=== PATIENT | female | born 1965 | race Caucasian/White ===

== ENCOUNTER → 2018-04-28 | Outpatient (REF) | payer OTHER, MEDICAID ==
[2018-04-28 13:17] LABS: HEMATOCRIT 43.9 % (36.0-47.0); HEMOGLOBIN 13.6 g/dl (12.0-15.5); MEAN CORPUSCULAR HEMOGLOBIN 27.4 pg (27.0-33.0); MEAN CORPUSCULAR VOLUME 88.5 fl (80.0-96.0); PLATELET COUNT, AUTOMATED 421 10^3/uL (150-450); RED BLOOD COUNT 4.96 10^6/uL (4.00-5.40); WHITE BLOOD COUNT 8.5 10^3/uL (4.0-10.0)
[2018-04-28 13:27] LABS: ALBUMIN 4.2 GM/DL (3.2-5.2); ALKALINE PHOSPHATASE 61 U/L (45-117); ALT/SGPT 20 U/L (12-78); ANION GAP 11 MEQ/L (8-16); AST/SGOT 10 U/L (7-37); BILIRUBIN,TOTAL 0.3 MG/DL (0.2-1.0); BLOOD UREA NITROGEN 12 MG/DL (7-18); CALCIUM LEVEL 9.2 MG/DL (8.5-10.1); CARBON DIOXIDE LEVEL 27 MEQ/L (21-32); CHLORIDE LEVEL 105 MEQ/L (98-107); CHOLESTEROL LEVEL 167 MG/DL (<200); CHOLESTEROL RISK RATIO 2.385 (<5); CREATININE FOR GFR 1.02 MG/DL (0.55-1.30); FERRITIN 14 NG/ML (8-252); FREE T4 1.06 NG/DL (0.76-1.46); GLOMERULAR FILTRATION RATE > 60.0 (>51); GLUCOSE, FASTING 81 MG/DL (70-100); HDL CHOLESTEROL 70 MG/DL (>40); IRON (FE) 58 UG/DL (50-170); LDL CHOLESTEROL 77 MG/DL (<100); NON-HDL-C 97 MG/DL; PERCENT SATURATION 13.9 % (13.2-45.0); POTASSIUM SERUM 4.4 MEQ/L (3.5-5.1); SODIUM LEVEL 143 MEQ/L (136-145); TOTAL IRON BINDING CAPACITY 418 UG/DL (250-450); TOTAL PROTEIN 7.7 GM/DL (6.4-8.2); TRIGLYCERIDES LEVEL 100 MG/DL (<150)
[2018-04-28 13:41] LABS: TOTAL 25(OH) VITAMIN D 26.5 NG/ML (30.0-100.0)
[2018-04-28 13:48] LABS: MALB URINE SIEMENS 19.7 MG/L
[2018-04-28 14:11] LABS: MAU/CREAT RATIO 17.9 MCG/MG (0.0-30.0)
== END ==
LOC: M SFHCPLAZ 08:28
DX: R53.83 Other fatigue (principal); E78.4 Other hyperlipidemia; Z98.84 Bariatric surgery status; I10 Essential (primary) hypertension; E55.9 Vitamin D deficiency, unspecified

== ENCOUNTER 2018-06-14 13:07 | Emergency (ER) | payer MEDICAID, OTHER ==
[2018-06-14] MEDS: GI COCKTAIL 50ML BTL(HYOSCYAMINE/MAALOX/LIDOCAINE VISCOUS)(1:3:1) PO (14:00)
[2018-06-14] MEDS: NS 500 ML IV (14:00)
[2018-06-14 14:14] LABS: BASO # 0.1 10^3/uL (0.0-0.2); BASO % 0.5 % (0.0-1.0); EOS # 0.2 10^3/uL (0.0-0.50); EOS % 1.9 % (0.0-3.0); HEMATOCRIT 44.4 % (36.0-47.0); HEMOGLOBIN 14.2 g/dl (12.0-15.5); IMMATURE GRANULOCYTE % 0.3 % (0-3.0); LYMPH # 3.4 10^3/uL (1.5-4.5); LYMPH % 36.4 % (24.0-44.0); MEAN CORPUSCULAR HEMOGLOBIN 27.4 pg (27.0-33.0); MEAN CORPUSCULAR VOLUME 85.7 fl (80.0-96.0); MONO # 0.7 10^3/uL (0.0-0.8); MONO % 7.3 % (0.0-5.0); NEUTROPHILS % 53.6 % (36.0-66.0); PLATELET COUNT, AUTOMATED 391 10^3/uL (150-450); RED BLOOD COUNT 5.18 10^6/uL (4.00-5.40); RED CELL DISTRIBUTION WIDTH 14.2 % (11.5-14.5); WHITE BLOOD COUNT 9.4 10^3/uL (4.0-10.0)
[2018-06-14 14:30] LABS: PROTHROMBIN TIME 13.3 SECONDS (12.1-14.4)
[2018-06-14 14:31] LABS: PARTIAL THROMBOPLASTIN TIME 32.3 SECONDS (25.4-37.6)
[2018-06-14 14:33] LABS: D-DIMER QUANT 286.7 ng/ml (<500)
[2018-06-14 14:43] LABS: ALBUMIN 3.9 GM/DL (3.2-5.2); ALBUMIN/GLOBULIN RATIO 1.08 (1.00-1.93); ALKALINE PHOSPHATASE 60 U/L (45-117); ALT/SGPT 22 U/L (12-78); ANION GAP 8 MEQ/L (8-16); AST/SGOT 13 U/L (7-37); BILIRUBIN,DIRECT 0.1 MG/DL (0.0-0.2); BILIRUBIN,TOTAL 0.4 MG/DL (0.2-1.0); BLOOD UREA NITROGEN 18 MG/DL (7-18); C REACTIVE PROTEIN QUANTITATIV 0.35 MG/DL (0.00-0.30); CARBON DIOXIDE LEVEL 27 MEQ/L (21-32); CHLORIDE LEVEL 106 MEQ/L (98-107); CPK CREATINE PHOSPHOKINASE 83 U/L (26-192); GLOMERULAR FILTRATION RATE 55.3 (>51); GLUCOSE, FASTING 88 MG/DL (70-100); LIPASE 112 U/L (73-393); MB/CK RELATIVE INDEX 1.57 (< OR =4); POTASSIUM SERUM 4.4 MEQ/L (3.5-5.1); SODIUM LEVEL 141 MEQ/L (136-145); TOTAL PROTEIN 7.5 GM/DL (6.4-8.2); TROPONIN I < 0.02 NG/ML (< 0.10)
== END 2018-06-14 15:22 | disposition home or self-care (01) ==
LOC: M ED 13:07
DX: R07.89 Other chest pain (principal); R06.02 Shortness of breath; I10 Essential (primary) hypertension; E78.5 Hyperlipidemia, unspecified; F32.9 Major depressive disorder, single episode, unspecified; F43.10 Post-traumatic stress disorder, unspecified; G47.33 Obstructive sleep apnea (adult) (pediatric); Z87.442 Personal history of urinary calculi; Z98.84 Bariatric surgery status; Z82.49 Family history of ischemic heart disease and other diseases of the circulatory system; Z88.1 Allergy status to other antibiotic agents; Z88.2 Allergy status to sulfonamides; Z79.899 Other long term (current) drug therapy; Z79.82 Long term (current) use of aspirin
CPT/HCPCS: 71046

== ENCOUNTER → 2018-06-17 | Outpatient (CLI) | payer MEDICAID | LOC: M WHC 11:19 | DX: Z12.31 Encounter for screening mammogram for malignant neoplasm of breast (principal); Z80.3 Family history of malignant neoplasm of breast | CPT/HCPCS: 77067 ==

== ENCOUNTER → 2019-01-13 | Outpatient (CLI) | payer OTHER ==
[~2019-01-13] MED LIST: AMLO10TA5 OR; ASPI81TA85 PO; CITA20TA6 OR; PRIL20TA2 PO; ROSU20TA4 OR; TRAZ-252 OR
--- NOTE | 2019-01-13 10:40 | REP ---
LEFT KNEE, FIVE VIEWS: HISTORY: Knee pain. There is no acute fracture or dislocation. There is minimal narrowing of the medial knee joint space. The lateral knee joint space and patellofemoral joint space are normal in appearance. Osteophytes are present on the femur and tibia. IMPRESSION: Degenerative change as described above. Electronically Signed by Roger Jimenez MD 01/13/2019 11:51 A
== END ==
LOC: M ADAMS 09:05
PROVIDERS: ATTEND Physician Assistant Medical
DX: M17.12 Unilateral primary osteoarthritis, left knee (principal)

== ENCOUNTER → 2019-02-03 | Outpatient (CLI) | payer OTHER ==
[~2019-02-03] MED LIST changes: -ROSU20TA4 OR; +ROSU20TA5 OR
--- NOTE | 2019-02-03 08:59 | REP ---
Clinical: Right foot pain Technique: AP, lateral, bilateral oblique views right foot . Findings: The osseous structures and joint spaces are intact and normal. There is no evidence for acute fracture or dislocation. Surrounding soft tissues are unremarkable. No subcutaneous emphysema or radiodense foreign body. Impression: Age-appropriate right foot radiographs. No obvious acute abnormality by radiographic evaluation. Electronically Signed by Jose Acosta MD 02/03/2019 08:51 A
== END ==
LOC: M ADAMS 08:27
PROVIDERS: ATTEND Physician Assistant Medical
DX: M79.671 Pain in right foot (principal)

== ENCOUNTER → 2019-07-06 | Outpatient (REF) | payer OTHER ==
[2019-07-06 12:23] LABS: HEMATOCRIT 44.5 % (36.0-47.0); HEMOGLOBIN 13.7 g/dl (12.0-15.5); MEAN CORPUSCULAR HEMOGLOBIN 27.7 pg (27.0-33.0); MEAN CORPUSCULAR HGB CONC 30.8 g/dl (32.0-36.5); MEAN CORPUSCULAR VOLUME 89.9 fl (80.0-96.0); PLATELET COUNT, AUTOMATED 440 10^3/uL (150-450); RED BLOOD COUNT 4.95 10^6/uL (4.00-5.40); WHITE BLOOD COUNT 9.5 10^3/uL (4.0-10.0)
[2019-07-06 12:31] LABS: ALBUMIN 3.9 GM/DL (3.2-5.2); BILIRUBIN,DIRECT 0.1 MG/DL (0.0-0.2); BILIRUBIN,TOTAL 0.3 MG/DL (0.2-1.0); CALCIUM LEVEL 9.3 MG/DL (8.5-10.1); CREATININE FOR GFR 1.04 MG/DL (0.55-1.30); GLOMERULAR FILTRATION RATE 58.8 (>51); PERCENT SATURATION 13.5 % (13.2-45.0); POTASSIUM SERUM 4.3 MEQ/L (3.5-5.1); THYROID STIMULATING HORMONE 2.35 uIU/ML (0.358-3.740); TOTAL PROTEIN 7.4 GM/DL (6.4-8.2)
[2019-07-06 12:33] LABS: TOTAL 25(OH) VITAMIN D 29.3 NG/ML (30.0-100.0)
== END ==
LOC: M SFHCPLAZ 09:26
PROVIDERS: ATTEND Family Medicine
DX: R53.82 Chronic fatigue, unspecified (principal); R19.7 Diarrhea, unspecified; I10 Essential (primary) hypertension; E55.9 Vitamin D deficiency, unspecified

== ENCOUNTER → 2019-08-04 | Outpatient (CLI) | payer OTHER ==
--- NOTE | 2019-08-04 09:24 | REPMRS ---
Patient History The patient states she has not had a clinical breast exam in over a year. Family history of breast cancer at age 45 in maternal grandmother. Took hormonal contraceptives for 10 years. Digital Woman Screen Mammo: August 04, 2019 - Exam #: [id number] Bilateral CC and MLO view(s) were taken. Technologist: Amanda Zee, Technologist Prior study comparison: June 17, 2018, bilateral digital woman screen mammo performed at [facility] [place]. October 2016, bilateral digital mammo screening bilat, performed at [facility]. March 04, 2015, bilateral digital mammo screening bilat, performed at [facility]. FINDINGS: There are scattered fibroglandular densities. There is a stable intramammary lymph node in the upper outer quadrant of the right breast unchanged from multiple prior studies. There has been no change in the appearance of the mammogram from the prior studies. There is a mild amount of scattered fibroglandular density which is fairly symmetric. There is no interval development of dominant mass, architectural distortion, or grouped microcalcification suggestive of malignancy. 3-D tomosynthesis shows no additional findings. Assessment: BI-RADS/ACR category 2 mammogram. Benign Findings. Recommendation Routine screening mammogram of both breasts in 1 year (for women over age 40). This patient's Lifetime Breast Cancer Risk is estimated at 9.4 %. This mammogram was interpreted with the aid of an FDA-approved computer-aided dectection system. Electronically Signed By: Balta Degroot MD 08/04/19 0923
== END ==
LOC: M WHC 08:17
PROVIDERS: ATTEND Family Medicine
DX: Z12.31 Encounter for screening mammogram for malignant neoplasm of breast (principal); Z92.0 Personal history of contraception

== ENCOUNTER → 2019-08-16 | Outpatient (REF) | payer OTHER | LOC: M LAB REF 10:21 | PROVIDERS: ATTEND Internal Medicine Gastroenterology | DX: K58.2 Mixed irritable bowel syndrome (principal) ==

== ENCOUNTER → 2019-08-23 | Outpatient (REF) | payer OTHER ==
[2019-08-23 10:49] LABS: CALCIUM LEVEL 9.3 MG/DL (8.5-10.1); CREATININE FOR GFR 1.1 MG/DL (0.55-1.30); GLOMERULAR FILTRATION RATE 55.1 (>51); POTASSIUM SERUM 4.3 MEQ/L (3.5-5.1)
== END ==
LOC: M SFHCPLAZ 09:08
PROVIDERS: ATTEND Family Medicine
DX: R10.9 Unspecified abdominal pain (principal)

== ENCOUNTER → 2019-08-23 | Outpatient (REF) | payer OTHER ==
[2019-08-23 13:42] LABS: APPEARANCE, URINE CLOUDY (CLEAR); BACTERIA, URINE AUTO NEGATIVE (NEGATIVE); BILIRUBIN, URINE AUTO NEGATIVE (NEGATIVE); BLOOD, URINE BLOOD NEGATIVE (NEGATIVE); COLOR, URINE YELLOW (YELLOW); GLUCOSE, URINE (UA) AUTO NEGATIVE (NEGATIVE); KETONE, URINE AUTO NEGATIVE (NEGATIVE); LEUKOCYTE ESTERASE, URINE AUTO TRACE (NEGATIVE); NITRITE, URINE AUTO NEGATIVE (NEGATIVE); PROTEIN, URINE AUTO NEGATIVE (NEGATIVE); RBC, URINE AUTO 1 /HPF (0-3); SPECIFIC GRAVITY URINE AUTO 1.021 (1.002-1.035); SQUAMOUS EPITHELIAL CELL UR AU 0 /HPF (0-6); UROBILINOGEN, URINE AUTO 0.2 mg/dL (0.0-2.0); WBC, URINE AUTO 1 /HPF (0-3)
== END ==
LOC: M SFHCPLAZ 13:15
PROVIDERS: ATTEND Family Medicine
DX: R10.9 Unspecified abdominal pain (principal)

== ENCOUNTER → 2019-08-23 | Outpatient (CLI) | payer OTHER ==
--- NOTE | 2019-08-23 11:27 | REP ---
CT of the abdomen and pelvis without IV and oral contrast for acute left flank pain, stat request: There are no comparisons. There are no renal or ureteral calculi on the right on the left. There are no bladder calculi. There is no hydronephrosis or perinephric stranding. There is a 2.6 cm right renal mid pole cyst. No left renal cysts are identified. The study is insensitive for renal masses in the absence of IV contrast. The visualized lung engel are unremarkable. The unenhanced hepatic parenchyma, gallbladder, pancreas, spleen and adrenals are unremarkable. The abdominal aorta is unremarkable. There is no periaortic adenopathy or mass. There is no bowel distension or obstruction. The mesentery is unremarkable. Pelvis: The appendix is unremarkable. There is no ascites or adenopathy. The pelvic bowel loops are unremarkable. There is a surgical staple line in the upper abdomen compatible with bariatric surgery. The visualized lung engel are unremarkable. Impression: There is no hydronephrosis. There are no renal, ureteral or bladder calculi. There is a right renal cyst as described. Bariatric surgery. Electronically Signed by Tu Zapata MD 08/23/2019 11:19 A
== END ==
LOC: M RAD 09:46
PROVIDERS: ATTEND Family Medicine
DX: N28.1 Cyst of kidney, acquired (principal); Z98.84 Bariatric surgery status; R10.9 Unspecified abdominal pain

== ENCOUNTER 2019-09-02 07:47 | Emergency (ER) | payer OTHER ==
[~2019-09-02] VITALS: Ht 152.4 cm; Wt 119.7 kg
[2019-09-02 07:48] VITALS: BP 142/70
[2019-09-02] MEDS ORDERED: ARIP1TAB6 PO (07:55)
[2019-09-02] MEDS ORDERED: ATOR40TA75 PO (07:55)
[2019-09-02] MEDS ORDERED: FLUO40CA PO (07:55)
--- NOTE | 2019-09-02 08:40 | REP ---
Right ankle four views : There is no fracture or dislocation. Mineralization and joint spaces are normal. There are no calcifications or foreign bodies. Impression: Negative right ankle . Electronically Signed by Tu Zapata MD 09/02/2019 08:31 A
== END 2019-09-02 09:19 | disposition home or self-care (01) ==
LOC: M ED 07:47
DX: S90.01XA Contusion of right ankle, initial encounter (principal); W22.8XXA Striking against or struck by other objects, initial encounter; Y92.89 Other specified places as the place of occurrence of the external cause; Y99.0 Civilian activity done for income or pay; I10 Essential (primary) hypertension; Z98.84 Bariatric surgery status; Z79.899 Other long term (current) drug therapy; Z88.2 Allergy status to sulfonamides; Z88.8 Allergy status to other drugs, medicaments and biological substances

== ENCOUNTER 2019-12-07 09:22 | Emergency (ER) | payer OTHER ==
[~2019-12-07] VITALS: Ht 152.4 cm; Wt 120.5 kg
[~2019-12-07 09:22] MED LIST changes: +ARIP1TAB6 PO; +ATOR40TA75 PO; +FLUO40CA PO; +MIRA3350 PO
[2019-12-07 10:36] LABS: BASO % 0.5 % (0.0-1.0); EOS # 0.2 10^3/uL (0.0-0.5); EOS % 2.6 % (0.0-3.0); HEMATOCRIT 39.3 % (36.0-47.0); HEMOGLOBIN 12.4 g/dl (12.0-15.5); LYMPH # 2.6 10^3/uL (1.5-5.0); LYMPH % 29.8 % (24.0-44.0); MEAN CORPUSCULAR HEMOGLOBIN 27.9 pg (27.0-33.0); MEAN CORPUSCULAR HGB CONC 31.6 g/dl (32.0-36.5); MEAN CORPUSCULAR VOLUME 88.3 fl (80.0-96.0); MONO # 0.8 10^3/uL (0.0-0.8); MONO % 9.4 % (0.0-5.0); NEUTROPHILS # 5.1 10^3/uL (1.5-8.5); NEUTROPHILS % 57.4 % (36.0-66.0); PLATELET COUNT, AUTOMATED 402 10^3/uL (150-450); RED BLOOD COUNT 4.45 10^6/uL (4.00-5.40); WHITE BLOOD COUNT 8.8 10^3/uL (4.0-10.0)
--- NOTE | 2019-12-07 10:38 | REP ---
All chest x-ray: Single view. History: Dyspnea and cough. Comparison chest x-ray: June 14, 2018. Findings: Monitoring electrodes are seen. Lungs are symmetrically aerated and clear. The pleural angles are sharp. Cardiomediastinal silhouette is unremarkable and unchanged. Pulmonary vasculature is not increased. No bony abnormality. Impression: No active disease. Electronically Signed by Eyad Degroot MD 12/07/2019 10:29 A
[2019-12-07 11:05] LABS: ALBUMIN 3.4 GM/DL (3.2-5.2); ALT/SGPT 28 U/L (12-78); BILIRUBIN,DIRECT < 0.1 MG/DL (0.0-0.2); BILIRUBIN,TOTAL 0.3 MG/DL (0.2-1.0); BLOOD UREA NITROGEN 18 MG/DL (7-18); CALCIUM LEVEL 8.9 MG/DL (8.5-10.1); CARBON DIOXIDE LEVEL 28 MEQ/L (21-32); CHLORIDE LEVEL 108 MEQ/L (98-107); CK-MB VALUE MASS < 1.0 NG/ML (<3.6); CPK CREATINE PHOSPHOKINASE 72 U/L (26-192); GLOMERULAR FILTRATION RATE 49.7 (>51); GLUCOSE, FASTING 97 MG/DL (70-100); MB/CK RELATIVE INDEX 1.39 (< OR =4); NT-PRO BNP 313 PG/ML (<125); POTASSIUM SERUM 4.4 MEQ/L (3.5-5.1); SODIUM LEVEL 142 MEQ/L (136-145); THYROXINE (T4) 8.5 UG/DL (4.5-12.0); TOTAL PROTEIN 6.9 GM/DL (6.4-8.2); TROPONIN I < 0.02 NG/ML (< 0.10)
[2019-12-07 11:45] VITALS: BP 135/82
--- NOTE | 2019-12-07 22:05 | ECGEPIP ---
[facility] - ED Test Date: 2019-12-07 Pat Name: ELVIS CORBIN Department: Room: - Gender: Female Clinical Sociologist: marcelino : 1965 Requested By: Marshall Duarte Order Number: [id number] Reading MD: Marshall Rubin Measurements Intervals [place] Rate: 61 P: 2 LA: 140 QRS: 2 QRSD: 95 T: 11 QT: 400 QTc: 405 Interpretive Statements SINUS RHYTHM NONSPECIFIC T WAVE ABNORMALITIES SIMILAR TO 06/14/18 Electronically Signed on 12-07-2019 22:05:23 EDT by Marshall Rubin
== END 2019-12-07 12:23 | disposition home or self-care (01) ==
LOC: M ED 09:22
DX: J06.9 Acute upper respiratory infection, unspecified (principal); R07.9 Chest pain, unspecified; R06.02 Shortness of breath; I10 Essential (primary) hypertension; E78.5 Hyperlipidemia, unspecified; F32.9 Major depressive disorder, single episode, unspecified; F41.9 Anxiety disorder, unspecified; F60.3 Borderline personality disorder; Z98.84 Bariatric surgery status; Z88.2 Allergy status to sulfonamides; Z91.048 Other nonmedicinal substance allergy status; Z79.899 Other long term (current) drug therapy; Z20.828 Contact with and (suspected) exposure to other viral communicable diseases
CPT/HCPCS: 71045; 80048; 80076; 82550; 82553; 83605; 83880; 84436; 84443; 84484; 85025; 85379; 87040; 87486; 87581; 87633; 87798; 93005; 93041; 94760; 99285; C9803; U0002

== ENCOUNTER → 2020-01-26 | Outpatient (CLI) | payer OTHER ==
[~2020-01-26] MED LIST changes: +DERM1TAB2 PO
== END ==
LOC: M LABSMTC 10:49
PROVIDERS: ATTEND Anesthesiology
DX: Z01.818 Encounter for other preprocedural examination (principal); Z11.59 Encounter for screening for other viral diseases

== ENCOUNTER 2020-01-29 06:43 | Day surgery (SDC) | payer OTHER ==
[~2020-01-29] VITALS: Ht 152.4 cm; Wt 115.2 kg
[~2020-01-29 06:43] MED LIST changes: +NS 1,000 ML IV ONE
[2020-01-29] MEDS ORDERED: SIMETHICONE 40MG/0.6ML DROPS 30ML As Ordered ONE (07:03)
[2020-01-29] MEDS ORDERED: propofoL 500 MG/50 ML VIAL As Ordered ONE (07:35)
[2020-01-29] MEDS ORDERED: LIDOCAINE 2% 100MG/5ML SDV (FOR ANES.) As Ordered ONE (07:35)
--- NOTE | 2020-01-29 07:56 | ROOR ---
Patient Name: Hannah Townsend Procedure Date: 01/29/2020 7:26 AM Date of : 1965 Age: 54 Room: [facility] Gender: Female Note Status: Finalized Procedure: Colonoscopy Indications: Change in bowel habits Providers: Kwabena GÓMEZ MD Referring MD: Fabienne Oneal MD Requesting Provider: Medicines: Monitored Anesthesia Care Complications: No immediate complications. Procedure: Pre-Anesthesia Assessment: - The heart rate, respiratory rate, oxygen saturations, blood pressure, adequacy of pulmonary ventilation, and response to care were monitored throughout the procedure. The Colonoscope was introduced through the anus and advanced to the cecum, identified by appendiceal orifice and ileocecal valve. The colonoscopy was performed without difficulty. The patient tolerated the procedure well. The quality of the bowel preparation was good. Findings: The perianal and digital rectal examinations were normal. Four sessile polyps were found in the sigmoid colon, splenic flexure and hepatic flexure. The polyps were diminutive in size. These polyps were removed with a cold snare. Resection and retrieval were complete. Mild sigmoid diverticulosis and small internal hemorrhoids. Biopsies for histology were taken with a cold forceps from the entire colon for evaluation of microscopic colitis. The exam was otherwise normal throughout the examined colon. Impression: - Four diminutive polyps in the sigmoid colon, at the splenic flexure and at the hepatic flexure, removed with a cold snare. Resected and retrieved. - Mild sigmoid diverticulosis and small internal hemorrhoids. - Biopsies were taken with a cold forceps from the entire colon for evaluation of microscopic colitis. - The exam was otherwise normal to the cecum. Recommendation: - Repeat colonoscopy in 3 years for surveillance. - Continue present medications. Kwabena Gómez MD Kwabena GÓMEZ MD 01/29/2020 7:56:36 AM Electronically signed by Kwabena GÓMEZ MD Number of Addenda: 0 Note Initiated On: 01/29/2020 7:26 AM Estimated Blood Loss: Estimated blood loss: none.
[2020-01-29 08:15] VITALS: BP 159/88
== END 2020-01-29 08:33 | disposition home or self-care (01) ==
LOC: M OPP 06:43
PROVIDERS: ATTEND Internal Medicine Gastroenterology
DX: D12.5 Benign neoplasm of sigmoid colon (principal); D12.3 Benign neoplasm of transverse colon; R19.4 Change in bowel habit; Z79.899 Other long term (current) drug therapy; Z88.2 Allergy status to sulfonamides; Z88.8 Allergy status to other drugs, medicaments and biological substances; Z91.048 Other nonmedicinal substance allergy status; Z98.84 Bariatric surgery status

== ENCOUNTER 2020-03-05 09:58 | Inpatient (IN) | payer OTHER ==
[~2020-03-05 09:58] MED LIST changes: -AMLO10TA5 OR; +AMLO1TAB25 OR; -ASPI81TA85 PO; +ASPI81TA86 PO; -NS 1,000 ML IV ONE
[2020-03-05] MEDS ORDERED: ACETAMINOPHEN TAB 650MG DOSE (2X325MG) ONE (15:21)
[2020-03-05] MEDS ORDERED: ACETAMINOPHEN TAB 650MG DOSE (2X325MG) As Ordered ONE (15:21)
[2020-03-05] MEDS ORDERED: traZODone 50 MG TAB ONE (23:46)
[2020-03-05] MEDS ORDERED: traZODone 50 MG TAB As Ordered ONE (23:46)
[2020-03-06] MEDS ORDERED: FOLIC ACID 1 MG TAB ONE (09:58)
[2020-03-06] MEDS ORDERED: THIAMINE 100 MG TAB ONE ×2 (09:58→22:41)
[2020-03-06] MEDS ORDERED: MULTIVITAMINS/MINERALS THERAP 1 TAB ONE (09:58)
[2020-03-06] MEDS ORDERED: MIRTAZAPINE 7.5MG PER 1/2 TABLET ONE (21:54)
[2020-03-06] MEDS ORDERED: ATORVASTATIN 20 MG TAB ONE (21:54)
[2020-03-06] MEDS ORDERED: amLODIPine 10 MG TAB ONE (22:41)
[2020-03-06] MEDS ORDERED: amLODIPine 10 MG TAB As Ordered ONE (22:41)
[2020-03-06] MEDS ORDERED: THIAMINE 100 MG TAB As Ordered ONE (22:41)
[2020-03-07] MEDS ORDERED: MULTIVITAMINS/MINERALS THERAP 1 TAB ONE (09:43)
[2020-03-07] MEDS ORDERED: THIAMINE 100 MG TAB ONE (09:43)
[2020-03-07] MEDS ORDERED: FOLIC ACID 1 MG TAB ONE (09:43)
[2020-04-25 12:10] LABS: BASO # 0.1 10^3/uL (0.0-0.2); BASO % 0.8 % (0.0-1.0); EOS # 0.2 10^3/uL (0.0-0.5); EOS % 3.1 % (0.0-3.0); HEMATOCRIT 41.8 % (36.0-47.0); LYMPH # 2.4 10^3/uL (1.5-5.0); LYMPH % 31.4 % (24.0-44.0); MEAN CORPUSCULAR HEMOGLOBIN 25.8 pg (27.0-33.0); MEAN CORPUSCULAR HGB CONC 31.1 g/dl (32.0-36.5); MEAN CORPUSCULAR VOLUME 83.1 fl (80.0-96.0); MONO # 0.6 10^3/uL (0.0-0.8); MONO % 7.6 % (0.0-5.0); NEUTROPHILS # 4.4 10^3/uL (1.5-8.5); NEUTROPHILS % 56.7 % (36.0-66.0); PLATELET COUNT, AUTOMATED 425 10^3/uL (150-450); RED BLOOD COUNT 5.03 10^6/uL (4.00-5.40); WHITE BLOOD COUNT 7.7 10^3/uL (4.0-10.0)
[2020-05-28 11:07] LABS: ACETAMINOPHEN LEVEL < 2.0 UG/ML (10.0-30.0); ALBUMIN 3.8 GM/DL (3.2-5.2); ALT/SGPT 24 U/L (12-78); AMPHETAMINES LEVEL URINE NEGATIVE (NEGATIVE); BARBITURATES URINE NEGATIVE (NEGATIVE); BENZODIAZEPINES URINE NEGATIVE (NEGATIVE); BILIRUBIN,DIRECT 0.1 MG/DL (0.0-0.2); BILIRUBIN,TOTAL 0.4 MG/DL (0.2-1.0); BLOOD UREA NITROGEN 13 MG/DL (7-18); CALCIUM LEVEL 9.5 MG/DL (8.5-10.1); CANNABINOIDS URINE NEGATIVE (NEGATIVE); CARBON DIOXIDE LEVEL 29 MEQ/L (21-32); CHLORIDE LEVEL 104 MEQ/L (98-107); COCAINE METABOLITE URINE NEGATIVE (NEGATIVE); CREATININE FOR GFR 1.24 MG/DL (0.55-1.30); ETHYL ALCOHOL (ETHANOL) < 0.003 % (0.000-0.010); FREE T4 1.15 NG/DL (0.76-1.46); GLOMERULAR FILTRATION RATE 47.8 (>51); GLUCOSE, FASTING 97 MG/DL (70-100); METHADONE URINE NEGATIVE (NEGATIVE); OPIATES URINE NEGATIVE (NEGATIVE); PHENCYCLIDINE URINE NEGATIVE (NEGATIVE); POTASSIUM SERUM 4.5 MEQ/L (3.5-5.1); SALICYLATE LEVEL < 1.7 MG/DL (5.0-30.0); SODIUM LEVEL 137 MEQ/L (136-145); TOTAL PROTEIN 7.5 GM/DL (6.4-8.2)
--- NOTE | 2020-05-30 20:50 | MHDSPDOC ---
[facility] Discharge Summary Discharge Summary DATE OF ADMISSION: Mar 05, 2020 at 17:05 DATE OF DISCHARGE: Mar 07, 2020 at 13:55 DISCHARGE DIAGNOSES: F43.12 Post-traumatic stress disorder, chronic CONSULTANTS INVOLVED:[ None (basic hospitalist screening)] REASON FOR ADMISSION & TREATMENT AND PROGRESS ON THE UNIT : The patient was admitted to the inpatient mental health unit where she had initially some suicidal thoughts. MEDICATIONS: Her medications were changed from her Prozac, Abilify, and Trazodone combo to Mirtazapine 7.5 mg nightly. She did well on this regimen and her condition improved with no suicidal thoughts or depression. DISCHARGE ASSESSMENT[improved] Legal status considerations: The patient at the time of discharge did not meet criteria for involuntary admission/extension due to having a [normal] mental status exam, [fair] insight into the situation, They are engaged in the discharge process, as well as being friendly and amenable in behavioral control and havent been engaging in any observed concerning behavior or ideation recently. They decline voluntary extension/admission at this time and must be discharged in good jay, as Im unable to make a case for holding the patient against their will. They may have historical risk factors of admissions and other interactions with psychiatry however, those are not modifiable from a clinical perspective. The patient will need to be discharged in good jay. MENTAL STATUS EXAMINATION ON DISCHARGE: [General: Well dressed with good hygiene Speech: Spontaneous and fluid Thought processes: Linear and logical Thought content: Future orientated Abstract reasoning, and computation: Intact Description of associations: Intact Description of abnormal or psychotic thoughts:Denies any suicidal or homicidal ideation. Denies any auditory or visual hallucinations. Does not appear to be responding to internal stimuli. Does not appear to be endorsing any bizarre or paranoid ideation. Judgment: fair Insight: fair Orientation: Alert and orientated 3 Recent and remote memory: Intact Attention span and concentration: Intact Fund of knowledge: Adequate Mood: "okay" Affect: Euthymic with a full range] PLAN/FOLLOWUP ARRANGEMENTS: Follow up appointments made (PCP and MH in 5 days of D/C date) and safety plan completed. Prescription for Mirtazapine 7.5 mg nightly given on paper. Safety Planning aspects completed prior to discharge [Medication supplies limited to 7 days with 4 refills to prevent accumulation to OD] [RN reviewed crisis hotline information and other aspects to empower patient to access care in interim before next appointment.] The amount of time spent in the coordination of care for this patient was approximately 30 minutes. Medications Scheduled Amlodipine Besylate (Amlodipine Besylate) 10 Mg Tab, 10 MG OR DAILY, (Reported) Atorvastatin Calcium (Atorvastatin Calcium) 40 Mg Tablet, 1 TAB PO QPM for 30 Days, #30 (Reported) Divalproex Sodium (Depakote ER) 500 Mg Tab.er.24h, 1 TAB PO QPM for 30 Days, #30 Tizanidine HCl (Tizanidine HCl) 2 Mg Tablet, PO PRN, (Reported) Trazodone HCl (Trazodone HCl) 50 Mg Tab, 50 MG OR DAILY, (Reported) Vitamin D3/Folic Acid (Dermacinrx Purefolix Tablet) 5,000 Unit Tablet, 1 TAB PO DAILY, (Reported) Vortioxetine Hydrobromide (Trintellix) 10 Mg Tablet, PO DAILY, (Reported) Allergies Coded Allergies: sulfamethoxazole (Verified Allergy, Intermediate, hives, 01/22/20) trimethoprim (Verified Allergy, Intermediate, hives, 01/22/20) TAPE (Verified Adverse Reaction, Mild, RASH, 01/22/20) REYMUNDO TYLER DO May 30, 2020 20:50
== END 2020-03-07 13:55 | disposition home or self-care (01) | DRG 755 ==
LOC: M ED 09:58 → M PSY 17:05
PROVIDERS: ADMIT Psychiatry & Neurology Addiction Medicine; ATTEND Psychiatry & Neurology Addiction Medicine
DX: F43.12 Post-traumatic stress disorder, chronic (principal); Z88.2 Allergy status to sulfonamides; Z79.899 Other long term (current) drug therapy; Z88.8 Allergy status to other drugs, medicaments and biological substances

== ENCOUNTER → 2020-03-13 | Outpatient (REF) | payer OTHER ==
[~2020-03-13] MED LIST changes: +BRIN10TA4 PO; +DEPA500T2 PO; +TIZA2TA PO
[2020-04-27 10:38] LABS: HEMOGLOBIN A1c 5.8 %
== END ==
LOC: M SFHCPLAZ 07:14
PROVIDERS: ATTEND Family Medicine
DX: Z13.1 Encounter for screening for diabetes mellitus (principal)

== ENCOUNTER → 2020-05-20 | Outpatient (CLI) | payer OTHER ==
--- NOTE | 2020-05-20 11:34 | REPVR ---
PROCEDURE INFORMATION: Exam: XR Chest, 2 Views Exam date and time: 05/20/2020 11:29 AM Age: 54 years old Clinical indication: Dyspnea; Additional info: Headache (xr1/ct2) TECHNIQUE: Imaging protocol: XR of the chest Views: 2 views. COMPARISON: ID PORTABLE CHEST X-RAY 12/07/2019 10:01 AM FINDINGS: Lungs: Unremarkable. No consolidation. Pleural space: Unremarkable. No pleural effusion. No pneumothorax. Heart/Mediastinum: Unremarkable. No cardiomegaly. Bones/joints: Unremarkable. IMPRESSION: No evidence for acute pulmonary disease. Electronically signed by: Rio Faith On 05/20/2020 11:34:33 AM
--- NOTE | 2020-05-20 11:46 | REPVR ---
PROCEDURE INFORMATION: Exam: CT Head Without Contrast Exam date and time: 05/20/2020 11:31 AM Age: 54 years old Clinical indication: Pain; Headache; Additional info: Headache (xr1/ct2) TECHNIQUE: Imaging protocol: Computed tomography of the head without contrast. Radiation optimization: All CT scans at this facility use at least one of these dose optimization techniques: automated exposure control; mA and/or kV adjustment per patient size (includes targeted exams where dose is matched to clinical indication); or iterative reconstruction. COMPARISON: No relevant prior studies available. FINDINGS: Brain: Normal. No hemorrhage. Unremarkable white matter. No mass effect. Cerebral ventricles: No ventriculomegaly. Bones/joints: Unremarkable. No acute fracture. Paranasal sinuses: Visualized sinuses are unremarkable. No fluid levels. Mastoid air cells: Visualized mastoid air cells are well aerated. Soft tissues: Unremarkable. IMPRESSION: No CT evidence for acute intracranial abnormality. Electronically signed by: Rio Faith On 05/20/2020 11:46:14 AM
[2020-05-20 11:47] LABS: BASO # 0.1 10^3/uL (0.0-0.2); BASO % 0.5 % (0.0-1.0); EOS # 0.2 10^3/uL (0.0-0.5); EOS % 1.8 % (0.0-3.0); HEMATOCRIT 40.9 % (36.0-47.0); HEMOGLOBIN 12.6 g/dl (12.0-15.5); LYMPH # 3.2 10^3/uL (1.5-5.0); LYMPH % 30.6 % (24.0-44.0); MEAN CORPUSCULAR HEMOGLOBIN 25.9 pg (27.0-33.0); MEAN CORPUSCULAR HGB CONC 30.8 g/dl (32.0-36.5); MONO # 0.8 10^3/uL (0.0-0.8); MONO % 7.7 % (0.0-5.0); NEUTROPHILS # 6.1 10^3/uL (1.5-8.5); NEUTROPHILS % 59.1 % (36.0-66.0); PLATELET COUNT, AUTOMATED 434 10^3/uL (150-450); RED BLOOD COUNT 4.87 10^6/uL (4.00-5.40); WHITE BLOOD COUNT 10.4 10^3/uL (4.0-10.0)
[2020-05-20 12:22] LABS: MONO REFLEX EBV COMP NEGATIVE (NEGATIVE)
[2020-05-20 12:28] LABS: ALBUMIN 3.6 GM/DL (3.2-5.2); ALT/SGPT 54 U/L (12-78); BILIRUBIN,TOTAL 0.3 MG/DL (0.2-1.0); BLOOD UREA NITROGEN 18 MG/DL (7-18); CALCIUM LEVEL 9.1 MG/DL (8.5-10.1); CARBON DIOXIDE LEVEL 27 MEQ/L (21-32); CHLORIDE LEVEL 107 MEQ/L (98-107); CPK CREATINE PHOSPHOKINASE 87 U/L (26-192); CREATININE FOR GFR 1.55 MG/DL (0.55-1.30); FREE T4 1.06 NG/DL (0.76-1.46); GLUCOSE, FASTING 84 MG/DL (70-100); POTASSIUM SERUM 4.4 MEQ/L (3.5-5.1); SODIUM LEVEL 140 MEQ/L (136-145)
[2020-05-20 12:51] LABS: ERYTHROCYTE SEDIMENTATION RATE 13 mm/hr (0-30)
[2020-05-20 12:52] LABS: APPEARANCE, URINE CLEAR (CLEAR); BACTERIA, URINE AUTO NEGATIVE (NEGATIVE); BILIRUBIN, URINE AUTO NEGATIVE (NEGATIVE); BLOOD, URINE BLOOD NEGATIVE (NEGATIVE); COLOR, URINE YELLOW (YELLOW); GLUCOSE, URINE (UA) AUTO NEGATIVE (NEGATIVE); KETONE, URINE AUTO NEGATIVE (NEGATIVE); LEUKOCYTE ESTERASE, URINE AUTO 1+ (NEGATIVE); MUCUS, URINE SMALL (NEGATIVE); NITRITE, URINE AUTO NEGATIVE (NEGATIVE); PROTEIN, URINE AUTO NEGATIVE (NEGATIVE); RBC, URINE AUTO 0 /HPF (0-3); SQUAMOUS EPITHELIAL CELL UR AU 1 /HPF (0-6); UROBILINOGEN, URINE AUTO 0.2 mg/dL (0.0-2.0); WBC, URINE AUTO 2 /HPF (0-3)
[2020-05-21 16:08] LABS: EBV AB TO NUCLEAR ANTIGEN <18.0 U/mL (0.0-17.9); EBV VIRAL CAPSID AG IgG >600.0 U/mL (0.0-17.9); EBV VIRAL CAPSID AG IgM <36.0 U/mL (0.0-35.9)
== END ==
LOC: M RAD 11:02
PROVIDERS: ATTEND Family Medicine
DX: R51.9 Headache, unspecified (principal); M79.10 Myalgia, unspecified site; R68.83 Chills (without fever)

== ENCOUNTER → 2020-05-22 | Outpatient (REF) | payer OTHER ==
[2020-05-22 15:28] LABS: CREATININE FOR GFR 1.18 MG/DL (0.55-1.30); GLOMERULAR FILTRATION RATE 50.6 (>51); POTASSIUM SERUM 4.3 MEQ/L (3.5-5.1)
== END ==
LOC: M PLALAB 12:44
PROVIDERS: ATTEND Family Medicine
DX: N17.9 Acute kidney failure, unspecified (principal)

== ENCOUNTER → 2020-05-22 | Outpatient (CLI) | payer OTHER ==
--- NOTE | 2020-05-22 09:45 | REP ---
INDICATION: N17.9 ACUTE KIDNEY INJURY COMPARISON: 07/24/2019 TECHNIQUE: Real time jacobs scale ultrasound examination using curved array transducer. Color Doppler evaluation of the intrarenal vasculature performed. FINDINGS: Bilateral kidneys are normal in reniform shape, contour, size, and echotexture without hydronephrosis, nephrolithiasis, renal mass lesion or perinephric fluid collection. No obvious renal injuries are identified. Right kidney measures 10.3 x 4.5 x 3.2 cm (RI equals 0.47) and includes 2.7 cm upper pole simple cyst and 0.8 cm midpole simple cyst. Left kidney measures 11.7 x 4.6 x 4.2 cm (RI equals 0.43) and includes 1.3 cm and 1.0 cm lower pole simple cysts. The bladder is incompletely distended and grossly unremarkable. IMPRESSION: 1. Kidneys demonstrate bilateral simple cysts without evidence for injury. <Electronically signed by Jose Acosta > 05/22/20 0941
== END ==
LOC: M WHC 07:57
PROVIDERS: ATTEND Family Medicine
DX: N28.1 Cyst of kidney, acquired (principal)

== ENCOUNTER → 2020-05-28 | Outpatient (REF) | payer OTHER ==
[2020-05-28 14:41] LABS: CALCIUM LEVEL 9.3 MG/DL (8.5-10.1); CREATININE FOR GFR 1.21 MG/DL (0.55-1.30); GLOMERULAR FILTRATION RATE 49.2 (>51); POTASSIUM SERUM 4.3 MEQ/L (3.5-5.1)
== END ==
LOC: M PLALAB 09:42
PROVIDERS: ATTEND Family Medicine
DX: N17.9 Acute kidney failure, unspecified (principal)

== ENCOUNTER 2020-05-30 09:37 | Emergency (ER) | payer OTHER ==
[~2020-05-30] VITALS: Ht 152.4 cm; Wt 115.9 kg
[~2020-05-30 09:37] MED LIST changes: -BRIN10TA4 PO; -DEPA500T2 PO; -TIZA2TA PO
[2020-05-30] MEDS ORDERED: TIZA2TA PO (10:02)
[2020-05-30] MEDS ORDERED: BRIN10TA4 PO (10:02)
[2020-05-30] MEDS ORDERED: NS 1,000 ML IV ONE (10:30)
[2020-05-30] MEDS ORDERED: KETOROLAC 30 MG/ML 1ML VIAL IV ONE (10:30)
[2020-05-30] MEDS ORDERED: METOCLOPRAMIDE INJ 10MG/2ML VIAL (J2765 PER 1) IV ONE (10:30)
[2020-05-30] MEDS ORDERED: MAG SULF 1GM/100ML (MAG RUN) 1 GM in IV 1 EA IV ONE (11:45)
[2020-05-30] MEDS ORDERED: VALPROATE SOD INJ 1,000 MG in D5W 50 ML IV ONE (11:45)
[2020-05-30] MEDS ORDERED: DEPA500T2 PO (12:30)
[2020-05-30 13:43] VITALS: BP 130/67
== END 2020-05-30 14:59 | disposition home or self-care (01) ==
LOC: M ED 09:37
DX: R51.9 Headache, unspecified (principal); I10 Essential (primary) hypertension; G47.33 Obstructive sleep apnea (adult) (pediatric); F33.9 Major depressive disorder, recurrent, unspecified; F43.10 Post-traumatic stress disorder, unspecified; Z79.899 Other long term (current) drug therapy
CPT/HCPCS: 96365; 96367; 96375; 99284; J1885; J2765; J3475

== ENCOUNTER 2020-06-03 09:48 | Emergency (ER) | payer OTHER ==
[~2020-06-03] VITALS: Ht 152.4 cm; Wt 116.0 kg
[~2020-06-03 09:48] MED LIST changes: +BRIN10TA4 PO; +DEPA500T2 PO; +TIZA2TA PO
[2020-06-03] MEDS ORDERED: METOCLOPRAMIDE INJ 10MG/2ML VIAL (J2765 PER 1) IV ONE (11:15)
[2020-06-03] MEDS ORDERED: ACETAMINOPHEN 500 MG TAB PO ONE (11:15)
[2020-06-03] MEDS ORDERED: KETOROLAC 30 MG/ML 1ML VIAL IV ONE (11:15)
--- NOTE | 2020-06-03 11:42 | REP ---
INDICATION: CHEST PAIN. COMPARISON: 05/20/2020 TECHNIQUE: AP seated portable chest FINDINGS: Lung engel are adequately inflated and without infiltrate, effusion, atelectasis or mass the heart is not enlarged for portable AP technique the airway and aorta were normal for this projection. No free air under the diaphragm. Bones are grossly unremarkable. IMPRESSION: 1. No acute cardiopulmonary change. Stable examination. <Electronically signed by Triston Rangel > 06/03/20 [id number]
[2020-06-03 12:21] LABS: BASO % 0.4 % (0.0-1.0); EOS # 0.2 10^3/uL (0.0-0.5); EOS % 2.1 % (0.0-3.0); HEMATOCRIT 40.6 % (36.0-47.0); HEMOGLOBIN 12.5 g/dl (12.0-15.5); LYMPH # 3.2 10^3/uL (1.5-5.0); LYMPH % 29.2 % (24.0-44.0); MEAN CORPUSCULAR HEMOGLOBIN 25.9 pg (27.0-33.0); MEAN CORPUSCULAR HGB CONC 30.8 g/dl (32.0-36.5); MEAN CORPUSCULAR VOLUME 84.2 fl (80.0-96.0); MONO # 0.9 10^3/uL (0.0-0.8); MONO % 8.3 % (0.0-5.0); NEUTROPHILS # 6.5 10^3/uL (1.5-8.5); NEUTROPHILS % 59.5 % (36.0-66.0); PLATELET COUNT, AUTOMATED 438 10^3/uL (150-450); RED BLOOD COUNT 4.82 10^6/uL (4.00-5.40); WHITE BLOOD COUNT 10.9 10^3/uL (4.0-10.0)
[2020-06-03] MEDS ORDERED: ISOVUE-370 76% 100ML VIAL As Ordered ONE (12:28)
[2020-06-03 12:39] LABS: INR 0.98; PROTHROMBIN TIME 13.2 SECONDS (12.5-14.3)
[2020-06-03 12:40] LABS: PARTIAL THROMBOPLASTIN TIME 34.3 SECONDS (24.2-38.5)
[2020-06-03 12:51] LABS: ALBUMIN 3.9 GM/DL (3.2-5.2); BILIRUBIN,DIRECT 0.1 MG/DL (0.0-0.2); BILIRUBIN,TOTAL 0.4 MG/DL (0.2-1.0); FREE T4 1.1 NG/DL (0.76-1.46); THYROID STIMULATING HORMONE 1.85 uIU/ML (0.358-3.740); TOTAL PROTEIN 7.4 GM/DL (6.4-8.2)
--- NOTE | 2020-06-03 13:22 | REP ---
INDICATION: constant garcia x 4 wks. COMPARISON: Comparison CT study brain 20 May 2020.. TECHNIQUE: Axial and sagittal imaging planes are utilized for T1 and T2-weighted scans. Sequences include spin-echo, fast spin echo, FLAIR, and diffusion weighted sequences. FINDINGS: No bony calvarial lesion is seen. Craniocervical junction and upper cervical cord are normal in appearance. There is no MR evidence of significant paranasal sinus disease. No intraorbital abnormality is seen. The lateral, third, and fourth ventricles are normal in size and position. Rodriguez-white differentiation pattern is intact above and below the tentorium. There is no evidence of intracranial hemorrhage. No mass, infarction, extra-axial fluid collection or midline shift is seen. No abnormal white matter lesion is seen. There are prominent perivascular spaces in the inferior aspect of the basal ganglia. This is a normal variant. IMPRESSION: Negative noncontrast brain MRI study. <Electronically signed by Balta Degroot > 06/03/20 2420
--- NOTE | 2020-06-03 13:24 | REP ---
INDICATION: constant garcia x 4 wks. COMPARISON: None. TECHNIQUE: 3-D [id number] MR angiography of the brain is acquired in the usual fashion and maximal intensity projection images were generated in rotational format about the vertical and horizontal axes. In addition, source axial T1-weighted images are viewed in cine mode. FINDINGS: The distal vertebral arteries are patent and co-dominant. Basilar artery is a little tortuous but widely patent. The posterior cerebral and superior cerebellar vessels are normal and symmetric. The left posterior communicator is larger than the right. The distal internal carotid arteries are unremarkable. Anterior and middle cerebral arteries appear intact. There is no visible winter aneurysm or arteriovenous malformation. IMPRESSION: Unremarkable MR angiography the brain. <Electronically signed by Balta Degroot > 06/03/20 [id number]
--- NOTE | 2020-06-03 14:59 | REP ---
INDICATION: R/O PE. COMPARISON: None. TECHNIQUE: CT angiogram chest performed following the intravenous administration of 100 cc of Isovue 370. Sagittal and coronal reconstruction images are performed. FINDINGS: Lungs: Mild scattered diffuse hazy ground-glass opacities are seen in the lungs representing poor ventilation or mild pneumonitis. Mediastinum: No adenopathy. Pulmonary arteries: No evidence of pulmonary embolism. Codi: No adenopathy. Axilla: No adenopathy. Pleura: No effusion. Heart: Mildly enlarged. Thoracic aorta: No aneurysm or dissection. Upper abdominal structures: Prior gastric surgery. Visualized osseous structures: Mild degenerative changes of the spine without compression deformity. A nodule is partially visualized in the lower pole of the left thyroid with a diameter of at least 1.8 cm. Recommend follow-up thyroid ultrasound. IMPRESSION: No CT evidence of pulmonary mild scattered diffuse ground-glass opacities in both lungs may represent poor ventilation or mild pneumonitis. Heart is mildly enlarged. A nodule is partially visualized in the lower pole of the left thyroid. Recommend follow-up thyroid ultrasound. <Electronically signed by Tu Rodriguez > 06/03/20 [id number]
[2020-06-03 15:57] VITALS: BP 122/81
--- NOTE | 2020-06-03 19:42 | ECGEPIP ---
[facility] - ED Test Date: 2020-06-03 Pat Name: ELVIS CORBIN Department: Room: - Gender: Female Registered Nursing Professor: lakeisha : 1965 Requested By: Mik Goodman Order Number: [id number] Reading MD: Yolanda Nice Measurements Intervals [place] Rate: 50 P: 1 ID: 144 QRS: -5 QRSD: 95 T: 0 QT: 442 QTc: 406 Interpretive Statements SINUS BRADYCARDIA NSTTW abnormalities DECREASED RATE 12/07/19 Electronically Signed on 06-03-2020 19:42:08 EST by Yolanda Nice
--- NOTE | 2020-06-04 06:41 | ED PDOC ---
Post-Departure Follow-Up cta chest faxed to dr gan for fu Mik Chung MD Jun 04, 2020 06:41
[2020-06-04 14:08] LABS: Lyme Disease IgG/IgM Antibodie <0.91 ISR (0.00-0.90); Lyme Disease IgM Ab Quantitati <0.80 index (0.00-0.79)
== END 2020-06-03 16:00 | disposition home or self-care (01) ==
LOC: M ED 09:48
DX: R09.1 Pleurisy (principal); R51.9 Headache, unspecified; R00.1 Bradycardia, unspecified; E04.1 Nontoxic single thyroid nodule; Z88.2 Allergy status to sulfonamides; Z88.8 Allergy status to other drugs, medicaments and biological substances; Z91.048 Other nonmedicinal substance allergy status; Z79.899 Other long term (current) drug therapy
CPT/HCPCS: 70544; 70551; 71045; 71275; 80047; 80076; 83690; 83880; 84439; 84443; 84484; 85025; 85610; 85730; 86617; 93005; 93041; 94760; 96374; 96375; 99284; J1885; J2765; Q9967

== ENCOUNTER 2020-06-06 11:59 | Emergency (ER) | payer OTHER ==
--- NOTE | 2020-06-06 12:31 | REP ---
INDICATION: DYSPNEA/COUGH. COMPARISON: June 03, 2020.. TECHNIQUE: Sitting AP portable view. FINDINGS: Monitoring electrodes are seen. The lungs are well inflated and clear. The pleural angles are sharp. Cardiomediastinal silhouette and bony thorax are unremarkable. Pulmonary vasculature is not increased. IMPRESSION: Negative portable chest x-ray. <Electronically signed by Balta Degroot > 06/06/20 [id number]
[2020-06-06 12:55] LABS: BASO # 0.1 10^3/uL (0.0-0.2); BASO % 0.5 % (0.0-1.0); EOS # 0.2 10^3/uL (0.0-0.5); EOS % 2.6 % (0.0-3.0); HEMATOCRIT 40.1 % (36.0-47.0); HEMOGLOBIN 12.2 g/dl (12.0-15.5); LYMPH % 31.8 % (24.0-44.0); MEAN CORPUSCULAR HEMOGLOBIN 25.7 pg (27.0-33.0); MEAN CORPUSCULAR HGB CONC 30.4 g/dl (32.0-36.5); MEAN CORPUSCULAR VOLUME 84.4 fl (80.0-96.0); MONO # 0.7 10^3/uL (0.0-0.8); MONO % 7.7 % (0.0-5.0); NEUTROPHILS # 5.3 10^3/uL (1.5-8.5); NEUTROPHILS % 57.1 % (36.0-66.0); PLATELET COUNT, AUTOMATED 432 10^3/uL (150-450); RED BLOOD COUNT 4.75 10^6/uL (4.00-5.40); WHITE BLOOD COUNT 9.3 10^3/uL (4.0-10.0)
[2020-06-06] MEDS ORDERED: NS 1,000 ML IV SCH (13:05)
[2020-06-06 13:12] LABS: ABG BASE EXCESS 0.4 (-2.0-2.0); ABG HCO3 24.6 MEQ/L (22.0-26.0); ABG O2 SATURATION 97.3 % (95.0-99.0); ABG PARTIAL PRESSURE CO2 38.1 mmHg (35.0-45.0); ABG PARTIAL PRESSURE O2 91.7 mmHg (75.0-100.0); ABG STANDARD HCO3 24.8 MEQ/L (22.0-26.0); ABG TOTAL CO2 25.7 MEQ/L (22.0-29.0); ABG pH (ARTERIAL) 7.427 UNITS (7.350-7.450)
[2020-06-06] MEDS ORDERED: METOCLOPRAMIDE INJ 10MG/2ML VIAL (J2765 PER 1) IV ONE (13:15)
[2020-06-06 13:25] LABS: ALBUMIN 3.7 GM/DL (3.2-5.2); ALT/SGPT 23 U/L (12-78); BILIRUBIN,DIRECT < 0.1 MG/DL (0.0-0.2); BILIRUBIN,TOTAL 0.3 MG/DL (0.2-1.0); NT-PRO BNP 161 PG/ML (<125); TOTAL PROTEIN 7.3 GM/DL (6.4-8.2)
[2020-06-06 13:43] LABS: BLOOD UREA NITROGEN 16 MG/DL (7-18); CALCIUM LEVEL 9.1 MG/DL (8.5-10.1); CARBON DIOXIDE LEVEL 28 MEQ/L (21-32); CHLORIDE LEVEL 106 MEQ/L (98-107); CK-MB VALUE MASS 1.1 NG/ML (<3.6); CPK CREATINE PHOSPHOKINASE 92 U/L (26-192); CREATININE FOR GFR 1.11 MG/DL (0.55-1.30); GLOMERULAR FILTRATION RATE 54.3 (>51); GLUCOSE, FASTING 80 MG/DL (70-100); POTASSIUM SERUM 4.8 MEQ/L (3.5-5.1); SODIUM LEVEL 138 MEQ/L (136-145); TROPONIN I < 0.02 NG/ML (< 0.10); VALPROIC ACID (DEPAKOTE) 47.8 UG/ML (50.0-100.0)
--- NOTE | 2020-06-06 14:54 | REP ---
INDICATION: headache. COMPARISON: Comparison CT study May 20, 2020.. TECHNIQUE: Helical scanning is acquired. 5 mm axial images were reformatted. Coronal MPR images were generated. FINDINGS: Bone window settings demonstrate an intact bony calvarium. There is no evidence of skull fracture or incidental bony calvarial lesion. The visualized paranasal sinuses appear clear. No intraorbital abnormality is seen. On soft tissue window setting images; the lateral, third, and fourth ventricles are normal in size and position. Rodriguez-white differentiation pattern is normal above and below the tentorium. There are is no evidence of intracranial hemorrhage. No mass, edema, infarction, or midline shift is seen. No extra-axial fluid collection is appreciated. There is mild vascular calcification in the distal internal carotid arteries. IMPRESSION: Vascular calcification. Otherwise negative noncontrast brain CT. No acute intracranial abnormality.. <Electronically signed by Balta Degroot > 06/06/20 [id number]
--- NOTE | 2020-06-06 14:59 | REP ---
INDICATION: SOB. COMPARISON: Comparison CT pulmonary angiogram 03 June 2020.. TECHNIQUE: Helical scanning is acquired. 3 mm axial images re-formatted. Coronal and sagittal multiplanar reformations images and coronal maximum intensity projection images are generated. FINDINGS: Preliminary digital principal systems architect radiograph is unremarkable. Lung engel are free of infiltrate. No atelectasis, mass, or significant nodule is seen. There is no evidence of pleural or pericardial effusion. There is mild vascular calcification again noted. Patient is status post gastric bypass. Normal adrenal glands are seen. There is a cyst in the right kidney partially included in the field of view measuring 2.8 cm in greatest diameter. Visualized upper abdominal structures are otherwise unremarkable. There is a left thyroid nodule or cyst measuring 2.1 cm in greatest diameter. No bony destructive lesion is appreciated. No endobronchial lesion is seen. The ground-glass opacity pattern seen on the June 03, [address] study is not seen today. IMPRESSION: No active cardiopulmonary disease. No infiltrate seen. Post gastric bypass. Right renal cyst and 2 cm left thyroid nodule noted. <Electronically signed by Balta Degroot > 06/06/20 [id number]
[2020-06-06 16:01] VITALS: BP 160/78
--- NOTE | 2020-06-07 09:15 | ECGEPIP ---
[facility] - ED Test Date: 2020-06-06 Pat Name: ELVIS CORBIN Department: Room: - Gender: Female Residential Real Estate Assistant: GABE : 1965 Requested By: Yolanda Nice Order Number: [id number] Reading MD: Yolanda Nice Measurements Intervals [place] Rate: 56 P: 27 RI: 150 QRS: -3 QRSD: 92 T: 24 QT: 439 QTc: 424 Interpretive Statements SINUS BRADYCARDIA SIMILAR 06/03/20 Electronically Signed on 06-07-2020 9:14:58 EST by Yolanda Nice
== END 2020-06-06 16:07 | disposition home or self-care (01) ==
LOC: M ED 11:59 → EDBD 11:59 → M ED 16:07
DX: R51.9 Headache, unspecified (principal); R06.00 Dyspnea, unspecified; I10 Essential (primary) hypertension; E78.5 Hyperlipidemia, unspecified; F33.9 Major depressive disorder, recurrent, unspecified; F43.10 Post-traumatic stress disorder, unspecified; F60.3 Borderline personality disorder; G47.33 Obstructive sleep apnea (adult) (pediatric); Z98.84 Bariatric surgery status; Z79.899 Other long term (current) drug therapy; Z88.1 Allergy status to other antibiotic agents; Z88.2 Allergy status to sulfonamides; Z88.8 Allergy status to other drugs, medicaments and biological substances; Z91.048 Other nonmedicinal substance allergy status
CPT/HCPCS: 36600; 70450; 71045; 71250; 80048; 80076; 80164; 82550; 82553; 82803; 83880; 84443; 84484; 85025; 87486; 87581; 87633; 87798; 93005; 93041; 96374; 99285; J2765

== ENCOUNTER → 2020-06-21 | Outpatient (CLI) | payer OTHER ==
--- NOTE | 2020-06-21 18:43 | REP ---
INDICATION: E04.1 THYROID NODULE COMPARISON: None. TECHNIQUE: Rodriguez scale and color evaluation of the thyroid gland using the linear high frequency transducer. FINDINGS: Right thyroid lobe measures 4.0 x 2.1 x 1.7 cm with 8 x 8 x 5 mm complex hypoechoic midpole nodule, 7 x 5 x 7 mm complex posterior lower pole nodule and 6 x 5 x 5 mm posterior lower pole nodule. Left lobe measures 4.3 x 1.9 x 2.2 cm and includes 4 x 3 x 2 mm upper pole nodule, 16 x 18 x 13 mm midpole nodule, and 7 x 7 x 7 mm medial midpole nodule. Isthmus measures 4 mm in width and includes 4 x 3 x 2 mm nodule. IMPRESSION: Bilateral thyroid nodules. The 7 x 5 x 7 mm right posterior lower pole nodule should be categorized as TI-RADS 3 and mildly suspicious and the 16 x 18 x 13 mm hypoechoic solid nodule in the left lobe should be categorized as TI-RADS 4 and moderately suspicious. FNA and/or follow-up should be considered. <Electronically signed by Jose Acosta > 06/21/20 [id number]
== END ==
LOC: M WHC 13:21
PROVIDERS: ATTEND Family Medicine
DX: E04.1 Nontoxic single thyroid nodule (principal)

== ENCOUNTER → 2020-07-04 | Outpatient (REF) | payer OTHER | LOC: M LAB REF 17:07 | PROVIDERS: ATTEND Internal Medicine Endocrinology, Diabetes & Metabolism | DX: E04.2 Nontoxic multinodular goiter (principal) ==

== ENCOUNTER → 2020-10-10 | Outpatient (REF) | payer OTHER ==
[2020-10-10 13:15] LABS: DRVV SCREEN 41.3 SEC
[2020-10-11 16:07] LABS: ANTINUCLEAR ANTIBODIES DIRECT Negative (Negative); Lyme Disease IgG/IgM Antibodie <0.91 ISR (0.00-0.90); Lyme Disease IgM Ab Quantitati <0.80 index (0.00-0.79)
== END ==
LOC: M LABDRWAD 12:20
PROVIDERS: ATTEND Physician Assistant Medical
DX: R51.9 Headache, unspecified (principal); M54.2 Cervicalgia

== ENCOUNTER → 2020-11-06 | Outpatient (REF) | payer BC ==
[2020-11-06 10:04] LABS: BASO # 0.1 10^3/uL (0.0-0.2); BASO % 0.8 % (0.0-1.0); EOS # 0.3 10^3/uL (0.0-0.5); EOS % 4.1 % (0.0-3.0); HEMATOCRIT 40.6 % (36.0-47.0); HEMOGLOBIN 12.5 g/dl (12.0-15.5); LYMPH # 2.9 10^3/uL (1.5-5.0); LYMPH % 39.2 % (24.0-44.0); MEAN CORPUSCULAR HEMOGLOBIN 26.6 pg (27.0-33.0); MEAN CORPUSCULAR HGB CONC 30.8 g/dl (32.0-36.5); MEAN CORPUSCULAR VOLUME 86.4 fl (80.0-96.0); MONO # 0.8 10^3/uL (0.0-0.8); MONO % 10.2 % (2.0-8.0); NEUTROPHILS # 3.3 10^3/uL (1.5-8.5); NEUTROPHILS % 45.2 % (36.0-66.0); PLATELET COUNT, AUTOMATED 470 10^3/uL (150-450); WHITE BLOOD COUNT 7.3 10^3/uL (4.0-10.0)
[2020-11-06 10:06] LABS: HEMATOCRIT 40.6 % (36.0-47.0)
[2020-11-06 10:47] LABS: BLOOD UREA NITROGEN 17 MG/DL (7-18); CALCIUM LEVEL 9.4 MG/DL (8.5-10.1); CARBON DIOXIDE LEVEL 31 MEQ/L (21-32); CHLORIDE LEVEL 107 MEQ/L (98-107); CHOLESTEROL LEVEL 228 MG/DL (<200); CHOLESTEROL RISK RATIO 3.257 (<5); CREATININE FOR GFR 0.93 MG/DL (0.55-1.30); FERRITIN 12 NG/ML (8-252); GLOMERULAR FILTRATION RATE > 60.0 (>51); GLUCOSE, FASTING 106 MG/DL (70-100); HDL CHOLESTEROL 70 MG/DL (>40); IRON (FE) 41 UG/DL (50-170); LDL CHOLESTEROL 139 MG/DL (<100); MAGNESIUM LEVEL 2.4 MG/DL (1.8-2.4); NON-HDL-C 158 MG/DL; PERCENT SATURATION 9.8 % (13.2-45.0); PHOSPHORUS LEVEL 3.6 MG/DL (2.5-4.9); POTASSIUM SERUM 4.3 MEQ/L (3.5-5.1); SODIUM LEVEL 140 MEQ/L (136-145); TOTAL IRON BINDING CAPACITY 417 UG/DL (250-450); TRIGLYCERIDES LEVEL 95 MG/DL (<150)
[2020-11-06 12:05] LABS: TOTAL 25(OH) VITAMIN D 30.6 NG/ML (30.0-100.0); VITAMIN B12 LEVEL 369 PG/ML (247-911)
== END ==
LOC: M SFHCPLAZ 08:36
PROVIDERS: ATTEND Family Medicine
DX: K90.9 Intestinal malabsorption, unspecified (principal); E78.2 Mixed hyperlipidemia; I10 Essential (primary) hypertension; E55.9 Vitamin D deficiency, unspecified

== ENCOUNTER 2020-11-20 09:08 | Emergency (ER) | payer BC, OTHER ==
[~2020-11-20] VITALS: Ht 152.4 cm; Wt 123.6 kg
[2020-11-20] MEDS ORDERED: NAPR220C14 PO (09:20)
--- NOTE | 2020-11-20 09:50 | REP ---
INDICATION: flank pain h/o stones COMPARISON: 08/23/2019 TECHNIQUE: Axial noncontrast images from the lung bases to the pubic symphysis with coronal and sagittal reformations. This CT examination was performed using the following dose reduction techniques: Automated exposure control, adjustment of mA and/or kv according to the patient's size, and use of iterative reconstruction technique. FINDINGS: Lung bases are clear. Visualized heart and pericardium normal. Liver, spleen, pancreas, gallbladder, and bilateral adrenal glands are normal. The kidneys demonstrate stable hypodensities likely representing benign cysts measuring up to 2.3 cm right kidney and 1.0 cm left kidney. No perinephric stranding, nephroureterolithiasis or hydroureteronephrosis. The enteric system demonstrates prior gastric bypass surgery. No bowel obstruction or acute inflammatory process. Normal terminal ileum and appendix identified in the right lower quadrant. Few scattered sigmoid diverticula noted without acute diverticulitis. Pelvis demonstrates normal bladder and evidence for prior hysterectomy. No ascites. No free air. No adenopathy. No focal inflammatory stranding. Abdominal aorta without aneurysm. Musculoskeletal structures are intact and without acute osseous abnormality. IMPRESSION: No acute abdominopelvic pathology appreciated. Kidneys demonstrate stable hypodensities consistent with cysts. Prior gastric bypass surgery and hysterectomy. No ascites, focal inflammatory stranding, free air or adenopathy. <Electronically signed by Jose Acosta > 11/20/20 0911
[2020-11-20 09:53] LABS: BASO # 0.1 10^3/uL (0.0-0.2); BASO % 0.7 % (0.0-1.0); EOS # 0.4 10^3/uL (0.0-0.5); EOS % 3.5 % (0.0-3.0); HEMOGLOBIN 12.7 g/dl (12.0-15.5); LYMPH # 3.2 10^3/uL (1.5-5.0); LYMPH % 32.1 % (24.0-44.0); MEAN CORPUSCULAR HEMOGLOBIN 26.3 pg (27.0-33.0); MEAN CORPUSCULAR VOLUME 85.1 fl (80.0-96.0); MONO # 0.9 10^3/uL (0.0-0.8); MONO % 8.5 % (2.0-8.0); NEUTROPHILS # 5.5 10^3/uL (1.5-8.5); NEUTROPHILS % 54.8 % (36.0-66.0); PLATELET COUNT, AUTOMATED 476 10^3/uL (150-450); RED BLOOD COUNT 4.82 10^6/uL (4.00-5.40)
[2020-11-20 10:21] LABS: ALBUMIN 3.8 GM/DL (3.2-5.2); ALT/SGPT 29 U/L (12-78); BILIRUBIN,DIRECT 0.1 MG/DL (0.0-0.2); BILIRUBIN,TOTAL 0.3 MG/DL (0.2-1.0); BLOOD UREA NITROGEN 22 MG/DL (7-18); CALCIUM LEVEL 9.1 MG/DL (8.5-10.1); CARBON DIOXIDE LEVEL 33 MEQ/L (21-32); CHLORIDE LEVEL 103 MEQ/L (98-107); CREATININE FOR GFR 1.01 MG/DL (0.55-1.30); GLOMERULAR FILTRATION RATE > 60.0 (>51); GLUCOSE, FASTING 89 MG/DL (70-100); LIPASE 87 U/L (73-393); POTASSIUM SERUM 3.7 MEQ/L (3.5-5.1); SODIUM LEVEL 140 MEQ/L (136-145); TOTAL PROTEIN 7.6 GM/DL (6.4-8.2)
[2020-11-20] MEDS ORDERED: DICYCLOMINE 10 MG CAP PO ONE (11:35)
[2020-11-20] MEDS ORDERED: MIRA3350 PO (11:36)
[2020-11-20] MEDS ORDERED: DICY1CAP8 PO (11:36)
[2020-11-20] MEDS ORDERED: COLA100C5 PO (11:36)
[2020-11-20 11:51] VITALS: BP 145/70
== END 2020-11-20 12:09 | disposition home or self-care (01) ==
LOC: M ED 09:08
DX: K57.90 Diverticulosis of intestine, part unspecified, without perforation or abscess without bleeding (principal); K59.00 Constipation, unspecified; I10 Essential (primary) hypertension; E78.00 Pure hypercholesterolemia, unspecified; G47.30 Sleep apnea, unspecified; F33.9 Major depressive disorder, recurrent, unspecified; F41.9 Anxiety disorder, unspecified; F43.10 Post-traumatic stress disorder, unspecified; Z79.899 Other long term (current) drug therapy; Z88.1 Allergy status to other antibiotic agents; Z88.2 Allergy status to sulfonamides; Z88.8 Allergy status to other drugs, medicaments and biological substances; Z91.048 Other nonmedicinal substance allergy status

== ENCOUNTER → 2021-01-01 | Outpatient (REF) | payer BC ==
[~2021-01-01] MED LIST changes: +COLA100C5 PO; +DICY1CAP8 PO; +NAPR220C14 PO
[2021-01-01 11:58] LABS: ALBUMIN 3.7 GM/DL (3.2-5.2); BILIRUBIN,TOTAL 0.4 MG/DL (0.2-1.0); CHOLESTEROL RISK RATIO 2.75 (<5); CREATININE FOR GFR 1.21 MG/DL (0.55-1.30); POTASSIUM SERUM 4.2 MEQ/L (3.5-5.1); TOTAL PROTEIN 7.2 GM/DL (6.4-8.2)
== END ==
LOC: M LABDRWAD 10:42
PROVIDERS: ATTEND Physician Assistant
DX: E78.00 Pure hypercholesterolemia, unspecified (principal); I10 Essential (primary) hypertension

== ENCOUNTER → 2021-01-24 | Outpatient (REF) | payer BC ==
[2021-01-24 11:10] LABS: CALCIUM LEVEL 8.8 MG/DL (8.5-10.1); CREATININE FOR GFR 1.04 MG/DL (0.55-1.30); GLOMERULAR FILTRATION RATE 58.4 (>51); POTASSIUM SERUM 4.4 MEQ/L (3.5-5.1)
== END ==
LOC: M SFHCPLAZ 08:23
PROVIDERS: ATTEND Family Medicine
DX: R94.4 Abnormal results of kidney function studies (principal)

== ENCOUNTER → 2021-03-03 | Outpatient (CLI) | payer BC | LOC: M WHC 07:38 | PROVIDERS: ATTEND Family Medicine | DX: Z12.31 Encounter for screening mammogram for malignant neoplasm of breast (principal) ==

== ENCOUNTER → 2021-04-01 | Outpatient (CLI) | payer BC ==
[2021-04-01 12:46] LABS: HEMATOCRIT 40.7 % (36.0-47.0); HEMOGLOBIN 12.5 g/dl (12.0-15.5); MEAN CORPUSCULAR HEMOGLOBIN 25.7 pg (27.0-33.0); MEAN CORPUSCULAR HGB CONC 30.7 g/dl (32.0-36.5); MEAN CORPUSCULAR VOLUME 83.6 fl (80.0-96.0); PLATELET COUNT, AUTOMATED 489 10^3/uL (150-450); RED BLOOD COUNT 4.87 10^6/uL (4.00-5.40); WHITE BLOOD COUNT 7.9 10^3/uL (4.0-10.0)
[2021-04-01 13:16] LABS: ALBUMIN 3.6 GM/DL (3.2-5.2); BILIRUBIN,TOTAL 0.4 MG/DL (0.2-1.0); CALCIUM LEVEL 9.1 MG/DL (8.5-10.1); CREATININE FOR GFR 1.14 MG/DL (0.55-1.30); GLOMERULAR FILTRATION RATE 52.5 (>51); POTASSIUM SERUM 4.5 MEQ/L (3.5-5.1); THYROID STIMULATING HORMONE 3.36 uIU/ML (0.358-3.740); TOTAL PROTEIN 7.1 GM/DL (6.4-8.2)
[2021-04-01 13:32] LABS: HEMOGLOBIN A1c 6.2 %
== END ==
LOC: M PLALAB 07:59
PROVIDERS: ATTEND Family Medicine
DX: R53.83 Other fatigue (principal); Z13.1 Encounter for screening for diabetes mellitus

== ENCOUNTER → 2021-08-05 | Outpatient (REF) | payer BC ==
[2021-08-05 17:27] LABS: APPEARANCE, URINE CLEAR (CLEAR); BACTERIA, URINE AUTO NEGATIVE (NEGATIVE); BILIRUBIN, URINE AUTO NEGATIVE (NEGATIVE); BLOOD, URINE BLOOD NEGATIVE (NEGATIVE); COLOR, URINE STRAW (YELLOW); GLUCOSE, URINE (UA) AUTO NEGATIVE (NEGATIVE); KETONE, URINE AUTO NEGATIVE (NEGATIVE); LEUKOCYTE ESTERASE, URINE AUTO TRACE (NEGATIVE); NITRITE, URINE AUTO NEGATIVE (NEGATIVE); PROTEIN, URINE AUTO NEGATIVE (NEGATIVE); RBC, URINE AUTO 0 /HPF (0-3); SPECIFIC GRAVITY URINE AUTO 1.011 (1.002-1.035); SQUAMOUS EPITHELIAL CELL UR AU 0 /HPF (0-6); TRANSITIONAL EPITHELIAL AUTO 1 /HPF; UROBILINOGEN, URINE AUTO 0.2 mg/dL (0.0-2.0); WBC, URINE AUTO 2 /HPF (0-3)
== END ==
LOC: M LAB REF 16:31
PROVIDERS: ATTEND Physician Assistant Medical
DX: R30.0 Dysuria (principal)

== ENCOUNTER → 2021-09-25 | Outpatient (CLI) | payer OTHER ==
[2021-09-25 10:08] LABS: CALCIUM LEVEL 9.3 MG/DL (8.5-10.1); CREATININE FOR GFR 1.09 MG/DL (0.55-1.30); GLOMERULAR FILTRATION RATE 55.3 (>51)
== END ==
LOC: M LAB 07:22
PROVIDERS: ATTEND Family Medicine
DX: R73.03 Prediabetes (principal)

== ENCOUNTER 2021-10-19 10:11 | Emergency (ER) | payer BC, OTHER ==
[~2021-10-19] VITALS: Ht 152.4 cm; Wt 125.0 kg
[2021-10-19] MEDS ORDERED: LISI10TA22 (10:20)
[2021-10-19] MEDS ORDERED: GABA-283 (10:20)
[2021-10-19] MEDS ORDERED: DULO1CAP5 (10:20)
[2021-10-19] MEDS ORDERED: ROPI1TAB3 (10:20)
[2021-10-19] MEDS ORDERED: ISOVUE-370 76% 100ML VIAL As Ordered ONE (10:47)
[2021-10-19 10:52] LABS: BASO # 0.1 10^3/uL (0.0-0.2); BASO % 0.5 % (0.0-1.0); EOS # 0.2 10^3/uL (0.0-0.5); EOS % 2.6 % (0.0-3.0); HEMATOCRIT 39.1 % (36.0-47.0); HEMOGLOBIN 12.1 g/dl (12.0-15.5); LYMPH # 2.7 10^3/uL (1.5-5.0); LYMPH % 29.4 % (24.0-44.0); MEAN CORPUSCULAR HEMOGLOBIN 26.8 pg (27.0-33.0); MEAN CORPUSCULAR HGB CONC 30.9 g/dl (32.0-36.5); MEAN CORPUSCULAR VOLUME 86.5 fl (80.0-96.0); MONO # 0.7 10^3/uL (0.0-0.8); NEUTROPHILS # 5.6 10^3/uL (1.5-8.5); NEUTROPHILS % 60.2 % (36.0-66.0); PLATELET COUNT, AUTOMATED 402 10^3/uL (150-450); RED BLOOD COUNT 4.52 10^6/uL (4.00-5.40); WHITE BLOOD COUNT 9.3 10^3/uL (4.0-10.0)
[2021-10-19 11:08] LABS: INR 0.94; PARTIAL THROMBOPLASTIN TIME 33.7 SECONDS (25.9-37.0)
[2021-10-19 11:21] LABS: CK-MB VALUE MASS 4.3 NG/ML (<3.6); MB/CK RELATIVE INDEX 1.65 (< OR =4)
[2021-10-19 11:29] LABS: ALBUMIN 3.6 GM/DL (3.2-5.2); BILIRUBIN,DIRECT 0.1 MG/DL (0.0-0.2); BILIRUBIN,TOTAL 0.5 MG/DL (0.2-1.0); CREATININE FOR GFR 1.07 MG/DL (0.55-1.30); FREE T4 1.1 NG/DL (0.76-1.46); GLOMERULAR FILTRATION RATE 56.5 (>51); POTASSIUM SERUM 4.3 MEQ/L (3.5-5.1); THYROID STIMULATING HORMONE 1.44 uIU/ML (0.358-3.740); TOTAL PROTEIN 6.8 GM/DL (6.4-8.2)
[2021-10-19 12:01] VITALS: BP 139/70
[2021-10-19] MEDS: COMBIVENT RESPIMAT 100-20MCG INHALER 4GM INH SCH ×3 (12:20→13:09)
[2021-10-19 12:30] LABS: CK-MB VALUE MASS 3.5 NG/ML (<3.6); MB/CK RELATIVE INDEX 1.43 (< OR =4)
[2021-10-19 15:04] LABS: CK-MB VALUE MASS 3.2 NG/ML (<3.6); MB/CK RELATIVE INDEX 1.46 (< OR =4)
[2021-10-19] MEDS ORDERED: VENTAER INH (15:43)
== END 2021-10-19 16:04 | disposition home or self-care (01) ==
LOC: M ED 10:11
DX: R07.9 Chest pain, unspecified (principal); R06.02 Shortness of breath; I10 Essential (primary) hypertension; E78.5 Hyperlipidemia, unspecified; F33.9 Major depressive disorder, recurrent, unspecified; F41.9 Anxiety disorder, unspecified; G47.30 Sleep apnea, unspecified; Z86.16 Personal history of COVID-19; Z87.442 Personal history of urinary calculi; Z98.84 Bariatric surgery status; Z79.899 Other long term (current) drug therapy; Z88.1 Allergy status to other antibiotic agents; Z88.2 Allergy status to sulfonamides; Z88.8 Allergy status to other drugs, medicaments and biological substances; Z91.048 Other nonmedicinal substance allergy status
CPT/HCPCS: 36415; 71045; 71275; 80047; 80048; 80076; 82550; 82553; 83690; 83880; 84439; 84443; 84484; 85025; 85610; 85730; 93005; 93041; 93971; 94640; 94760; 99285; Q9967

== ENCOUNTER → 2021-12-22 | Outpatient (REF) | payer OTHER, BC ==
[~2021-12-22] MED LIST changes: +DULO1CAP5; +GABA-283; +LISI10TA22; +ROPI1TAB3; +VENTAER INH
== END ==
LOC: M SFHCPLAZ 17:02
PROVIDERS: ATTEND Physician Assistant
DX: B34.9 Viral infection, unspecified (principal)

== ENCOUNTER → 2022-01-20 | Outpatient (CLI) | payer OTHER ==
[2022-01-20 15:47] LABS: BASO # 0.1 10^3/uL (0.0-0.2); BASO % 0.6 % (0.0-1.0); EOS # 0.3 10^3/uL (0.0-0.5); EOS % 2.7 % (0.0-3.0); HEMATOCRIT 40.7 % (36.0-47.0); HEMOGLOBIN 12.6 g/dl (12.0-15.5); LYMPH # 3.4 10^3/uL (1.5-5.0); LYMPH % 31.9 % (24.0-44.0); MEAN CORPUSCULAR HEMOGLOBIN 27.5 pg (27.0-33.0); MEAN CORPUSCULAR VOLUME 88.9 fl (80.0-96.0); MONO % 9.4 % (2.0-8.0); NEUTROPHILS # 5.8 10^3/uL (1.5-8.5); NEUTROPHILS % 54.7 % (36.0-66.0); PLATELET COUNT, AUTOMATED 442 10^3/uL (150-450); RED BLOOD COUNT 4.58 10^6/uL (4.00-5.40); WHITE BLOOD COUNT 10.5 10^3/uL (4.0-10.0)
[2022-01-20 16:09] LABS: CREATININE FOR GFR 1.1 MG/DL (0.55-1.30); GLOMERULAR FILTRATION RATE 54.5 (>51); PTH INTACT 109.8 PG/ML (18.5-88.0)
[2022-01-20 16:10] LABS: ALBUMIN 3.6 GM/DL (3.2-5.2); BILIRUBIN,TOTAL 0.3 MG/DL (0.2-1.0); C REACTIVE PROTEIN QUANTITATIV 0.35 MG/DL (0.00-0.30); CALCIUM LEVEL 8.9 MG/DL (8.5-10.1); FREE T4 0.98 NG/DL (0.76-1.46); THYROID STIMULATING HORMONE 1.87 uIU/ML (0.358-3.740); TOTAL PROTEIN 6.9 GM/DL (6.4-8.2)
[2022-01-20 16:13] LABS: ERYTHROCYTE SEDIMENTATION RATE 9 mm/hr (0-30)
== END ==
LOC: M PLALAB 12:14
PROVIDERS: ATTEND Physician Assistant
DX: L74.9 Eccrine sweat disorder, unspecified (principal)

== ENCOUNTER → 2022-02-10 | Outpatient (CLI) | payer OTHER | LOC: M WHC 12:59 | PROVIDERS: ATTEND Physician Assistant | DX: N64.4 Mastodynia (principal) | CPT/HCPCS: 76642; 77066; G0279 ==

== ENCOUNTER → 2022-02-10 | Outpatient (CLI) | payer OTHER | LOC: M PLAIMG 15:15 → M PLALAB 15:15 | PROVIDERS: ATTEND Physician Assistant | DX: N64.4 Mastodynia (principal) ==

== ENCOUNTER → 2022-02-23 | Outpatient (CLI) | payer OTHER ==
[~2022-02-23] MED LIST changes: +KETO10TAB PO; +METH-1164
== END ==
LOC: M CARPUL 14:36
PROVIDERS: ATTEND Physician Assistant
DX: R94.2 Abnormal results of pulmonary function studies (principal); R06.02 Shortness of breath

== ENCOUNTER 2022-02-28 11:53 | Emergency (ER) | payer OTHER ==
[~2022-02-28] VITALS: Ht 152.4 cm; Wt 120.2 kg
[2022-02-28 11:53] VITALS: BP 148/73
[~2022-02-28 11:53] MED LIST changes: -KETO10TAB PO; -METH-1164
[2022-02-28] MEDS ORDERED: METH-1164 (12:05)
[2022-02-28] MEDS ORDERED: KETOROLAC 30 MG/ML 1ML VIAL IM ONE (13:50)
[2022-02-28] MEDS ORDERED: KETO10TAB PO (14:24)
== END 2022-02-28 14:33 | disposition home or self-care (01) ==
LOC: M ED 11:53
DX: M79.672 Pain in left foot (principal); M71.22 Synovial cyst of popliteal space [Baker], left knee; E11.9 Type 2 diabetes mellitus without complications; I10 Essential (primary) hypertension; M50.30 Other cervical disc degeneration, unspecified cervical region; Z98.84 Bariatric surgery status; Z88.1 Allergy status to other antibiotic agents; Z88.2 Allergy status to sulfonamides; Z88.8 Allergy status to other drugs, medicaments and biological substances; Z91.048 Other nonmedicinal substance allergy status; Z79.899 Other long term (current) drug therapy
CPT/HCPCS: 73630; 93971; 96372; 99282; J1885

== ENCOUNTER → 2022-03-10 | Outpatient (CLI) | payer OTHER ==
[~2022-03-10] MED LIST changes: +KETO10TAB PO; +METH-1164
[2022-03-10 15:19] LABS: BASO # 0.1 10^3/uL (0.0-0.2); BASO % 0.6 % (0.0-1.0); EOS # 0.4 10^3/uL (0.0-0.5); EOS % 3.3 % (0.0-3.0); HEMATOCRIT 39.5 % (36.0-47.0); HEMOGLOBIN 12.3 g/dl (12.0-15.5); LYMPH # 3.4 10^3/uL (1.5-5.0); LYMPH % 30.7 % (24.0-44.0); MEAN CORPUSCULAR HEMOGLOBIN 28.5 pg (27.0-33.0); MEAN CORPUSCULAR HGB CONC 31.1 g/dl (32.0-36.5); MEAN CORPUSCULAR VOLUME 91.4 fl (80.0-96.0); MONO # 0.7 10^3/uL (0.0-0.8); NEUTROPHILS # 6.5 10^3/uL (1.5-8.5); NEUTROPHILS % 58.8 % (36.0-66.0); PLATELET COUNT, AUTOMATED 416 10^3/uL (150-450); RED BLOOD COUNT 4.32 10^6/uL (4.00-5.40); WHITE BLOOD COUNT 11.1 10^3/uL (4.0-10.0)
[2022-03-10 18:43] LABS: PTH INTACT 75.3 PG/ML (18.5-88.0); TOTAL 25(OH) VITAMIN D 43.6 NG/ML (30.0-100.0)
== END ==
LOC: M PLALAB 13:11
PROVIDERS: ATTEND Physician Assistant
DX: E21.3 Hyperparathyroidism, unspecified (principal)

== ENCOUNTER 2022-03-13 07:50 | Observation (INO) | payer OTHER ==
[~2022-03-13] VITALS: Ht 152.4 cm; Wt 122.8 kg
[~2022-03-13 07:50] MED LIST changes: -DULO1CAP5; +DULO1CAP5 PO; -GABA-283; +GABA-283 PO; -LISI10TA22; +LISI10TA22 PO; -ROPI1TAB3; +ROPI1TAB3 PO
[2022-03-13] MEDS ORDERED: NS 1,000 ML IV ONE ×2 (08:40→11:05)
[2022-03-13 08:43] LABS: BASO % 0.2 % (0.0-1.0); EOS # 0.1 10^3/uL (0.0-0.5); EOS % 0.8 % (0.0-3.0); HEMATOCRIT 34.5 % (36.0-47.0); HEMOGLOBIN 11.5 g/dl (12.0-15.5); LYMPH # 1.9 10^3/uL (1.5-5.0); MEAN CORPUSCULAR HEMOGLOBIN 28.4 pg (27.0-33.0); MEAN CORPUSCULAR HGB CONC 33.3 g/dl (32.0-36.5); MEAN CORPUSCULAR VOLUME 85.2 fl (80.0-96.0); MONO # 0.9 10^3/uL (0.0-0.8); MONO % 6.4 % (2.0-8.0); NEUTROPHILS # 11.3 10^3/uL (1.5-8.5); NEUTROPHILS % 79.2 % (36.0-66.0); PLATELET COUNT, AUTOMATED 401 10^3/uL (150-450); RED BLOOD COUNT 4.05 10^6/uL (4.00-5.40); WHITE BLOOD COUNT 14.3 10^3/uL (4.0-10.0)
[2022-03-13] MEDS ORDERED: ISOVUE-370 76% 100ML VIAL As Ordered ONE (08:44)
[2022-03-13 09:17] LABS: RSV AMPLIFICATION NEGATIVE (NEGATIVE)
[2022-03-13 09:24] LABS: ALBUMIN 3.2 GM/DL (3.2-5.2); BILIRUBIN,DIRECT 0.3 MG/DL (0.0-0.2); BILIRUBIN,TOTAL 0.7 MG/DL (0.2-1.0); TOTAL PROTEIN 6.4 GM/DL (6.4-8.2)
[2022-03-13 09:57] LABS: HCG, SERUM QUALITATIVE NEGATIVE (NEGATIVE)
[2022-03-13 10:13] LABS: ACETAMINOPHEN LEVEL < 2.0 UG/ML (10.0-30.0); BLOOD UREA NITROGEN 43 MG/DL (7-18); CARBON DIOXIDE LEVEL 20 MEQ/L (21-32); CHLORIDE LEVEL 101 MEQ/L (98-107); CREATININE FOR GFR 1.79 MG/DL (0.55-1.30); ETHYL ALCOHOL (ETHANOL) < 0.003 % (0.000-0.010); GLOMERULAR FILTRATION RATE 31.1 (>51); GLUCOSE, FASTING 142 MG/DL (70-100); POTASSIUM SERUM 3.6 MEQ/L (3.5-5.1); SALICYLATE LEVEL < 1.7 MG/DL (5.0-30.0); SODIUM LEVEL 131 MEQ/L (136-145)
[2022-03-13 10:57] LABS: AMPHETAMINES LEVEL URINE NEGATIVE (NEGATIVE); BARBITURATES URINE NEGATIVE (NEGATIVE); BENZODIAZEPINES URINE NEGATIVE (NEGATIVE); CANNABINOIDS URINE NEGATIVE (NEGATIVE); COCAINE METABOLITE URINE NEGATIVE (NEGATIVE); METHADONE URINE NEGATIVE (NEGATIVE); OPIATES URINE NEGATIVE (NEGATIVE); PHENCYCLIDINE URINE NEGATIVE (NEGATIVE)
[2022-03-13] MEDS ORDERED: NS 1,000 ML IV SCH (11:00)
[2022-03-13] MEDS ORDERED: TRAZ1TAB14 PO (11:19)
[2022-03-13] MEDS ORDERED: VITA100093 PO (11:19)
[2022-03-13] MEDS ORDERED: META0.52 PO ×2 (11:19)
[2022-03-13] MEDS ORDERED: MAGN400T2 PO (11:19)
[2022-03-13] MEDS ORDERED: VITA-158 PO (11:19)
[2022-03-13] MEDS ORDERED: GLUC1TAB58 PO (11:19)
[2022-03-13] MEDS ORDERED: AMLO1TAB24 PO (11:19)
[2022-03-13] MEDS ORDERED: HOME MED LIST COMPLETE! XX SCH (11:25)
[2022-03-13] MEDS ORDERED: ACETAMINOPHEN TAB 650MG DOSE (2X325MG) PO PRN (12:15)
[2022-03-13 12:22] LABS: INR 0.95
[2022-03-13 12:23] LABS: PARTIAL THROMBOPLASTIN TIME 31.2 SECONDS (25.9-37.0)
[2022-03-13 12:54] LABS: MB/CK RELATIVE INDEX 5.17 (< OR =4)
[2022-03-13 13:27] LABS: ABG BASE EXCESS -1.9 (-2.0-2.0); ABG HCO3 22.5 MEQ/L (22.0-26.0); ABG O2 SATURATION 81.2 % (95.0-99.0); ABG PARTIAL PRESSURE CO2 37.1 mmHg (35.0-45.0); ABG STANDARD HCO3 22.6 MEQ/L (22.0-26.0); ABG TOTAL CO2 23.7 MEQ/L (22.0-29.0); ABG pH (ARTERIAL) 7.401 UNITS (7.350-7.450)
[2022-03-13 13:34] LABS: ABG PARTIAL PRESSURE O2 44.9 mmHg (75.0-100.0)
[2022-03-13 14:08] LABS: CHOLESTEROL LEVEL 159 MG/DL (<200); CHOLESTEROL RISK RATIO 2.338 (<5); HDL CHOLESTEROL 68 MG/DL (>40); LDL CHOLESTEROL 70 MG/DL (<100); NON-HDL-C 91 MG/DL; TRIGLYCERIDES LEVEL 106 MG/DL (<150)
[2022-03-13 14:23] LABS: HEMOGLOBIN A1c 5.8 %
[2022-03-13 16:32] LABS: NT-PRO BNP 3999 PG/ML (<125)
[2022-03-13 17:26] VITALS: BP 116/54
[2022-03-13] MEDS: PANTOPRAZOLE 40MG VIAL IV SCH (18:12)
[2022-03-13] MEDS: GABAPENTIN 400MG CAP PO SCH ×2 (18:12→21:09)
[2022-03-13] MEDS: NS 1,000 ML IV SCH (18:12)
[2022-03-13 19:57] LABS: BACTERIA, URINE NONE SEEN; HYALINE CAST, URINE NONE SEEN /lpf (0-1); RBC, URINE NONE SEEN /hpf (0-3); SQUAMOUS EPITHELIAL CELL URINE SMALL AMOUNT /hpf (SMALL AMT)
[2022-03-13] MEDS: rOPINIRole 1MG TAB PO SCH (21:08)
[2022-03-13] MEDS: traZODone 50 MG TAB PO SCH (21:08)
[2022-03-13] MEDS: DULoxetine 30MG CAPSULE (CYMBALTA) PO SCH (21:09)
[2022-03-13] MEDS: HEPARIN SOD (PORCINE) 5000UNITS/ML 1ML VIAL/SYRINGE SQ SCH (21:09)
[2022-03-13 22:00] VITALS: BP 122/64
[2022-03-14] MEDS ORDERED: ONDANSETRON 4MG 2ML VIAL IV PRN (00:50)
[2022-03-14] MEDS: NS 1,000 ML IV SCH ×2 (01:44→08:03)
[2022-03-14] MEDS: HEPARIN SOD (PORCINE) 5000UNITS/ML 1ML VIAL/SYRINGE SQ SCH ×3 (05:26→20:57)
[2022-03-14 06:00] VITALS: BP 112/58
[2022-03-14 06:16] LABS: HEMATOCRIT 30.3 % (36.0-47.0); HEMOGLOBIN 9.7 g/dl (12.0-15.5); MEAN CORPUSCULAR HEMOGLOBIN 28.7 pg (27.0-33.0); MEAN CORPUSCULAR VOLUME 89.6 fl (80.0-96.0); PLATELET COUNT, AUTOMATED 340 10^3/uL (150-450); RED BLOOD COUNT 3.38 10^6/uL (4.00-5.40)
[2022-03-14 06:49] LABS: ALBUMIN 2.6 GM/DL (3.2-5.2); BILIRUBIN,TOTAL 0.4 MG/DL (0.2-1.0); CALCIUM LEVEL 8.1 MG/DL (8.5-10.1); CREATININE FOR GFR 1.81 MG/DL (0.55-1.30); GLOMERULAR FILTRATION RATE 30.7 (>51); POTASSIUM SERUM 4.1 MEQ/L (3.5-5.1); TOTAL PROTEIN 5.2 GM/DL (6.4-8.2)
[2022-03-14] MEDS: PANTOPRAZOLE 40MG VIAL IV SCH (08:04)
[2022-03-14] MEDS: DULoxetine 30MG CAPSULE (CYMBALTA) PO SCH ×2 (08:04→20:57)
[2022-03-14] MEDS: ASCORBIC ACID 500 MG TAB PO SCH (08:04)
[2022-03-14] MEDS: MAGNESIUM OXIDE 400MG TAB (MAG-OX) PO SCH (08:04)
[2022-03-14] MEDS: GABAPENTIN 400MG CAP PO SCH ×3 (08:04→20:59)
[2022-03-14] MEDS ORDERED: ATORVASTATIN 20 MG TAB PO SCH (09:00)
[2022-03-14] MEDS ORDERED: FUROSEMIDE 40MG/4ML VIAL (J1940) IV SCH (09:00)
[2022-03-14 14:00] VITALS: BP 110/64
[2022-03-14 19:27] LABS: CALCIUM LEVEL 8.8 MG/DL (8.5-10.1); CREATININE FOR GFR 1.55 MG/DL (0.55-1.30); GLOMERULAR FILTRATION RATE 36.7 (>51); POTASSIUM SERUM 3.8 MEQ/L (3.5-5.1)
[2022-03-14 20:26] VITALS: BP 116/56
[2022-03-14 20:46] VITALS: BP 109/60
[2022-03-14] MEDS: traZODone 50 MG TAB PO SCH (20:57)
[2022-03-14] MEDS: rOPINIRole 1MG TAB PO SCH (20:58)
[2022-03-14] MEDS: PERCOCET 5MG/325MG TAB PO PRN (20:59)
[2022-03-15 05:54] LABS: HEMOGLOBIN 9.8 g/dl (12.0-15.5); MEAN CORPUSCULAR HEMOGLOBIN 28.7 pg (27.0-33.0); MEAN CORPUSCULAR HGB CONC 31.6 g/dl (32.0-36.5); MEAN CORPUSCULAR VOLUME 90.6 fl (80.0-96.0); PLATELET COUNT, AUTOMATED 338 10^3/uL (150-450); RED BLOOD COUNT 3.42 10^6/uL (4.00-5.40); WHITE BLOOD COUNT 9.3 10^3/uL (4.0-10.0)
[2022-03-15 06:00] VITALS: BP 112/62
[2022-03-15] MEDS: HEPARIN SOD (PORCINE) 5000UNITS/ML 1ML VIAL/SYRINGE SQ SCH ×3 (06:21→21:09)
[2022-03-15 06:27] LABS: ALBUMIN 2.8 GM/DL (3.2-5.2); BILIRUBIN,TOTAL 0.2 MG/DL (0.2-1.0); CALCIUM LEVEL 8.5 MG/DL (8.5-10.1); CREATININE FOR GFR 1.61 MG/DL (0.55-1.30); GLOMERULAR FILTRATION RATE 35.1 (>51); POTASSIUM SERUM 4.3 MEQ/L (3.5-5.1); TOTAL PROTEIN 5.6 GM/DL (6.4-8.2)
[2022-03-15] MEDS: DULoxetine 30MG CAPSULE (CYMBALTA) PO SCH ×3 (09:13→21:08)
[2022-03-15] MEDS: NS 1,000 ML IV SCH ×2 (09:13→21:12)
[2022-03-15] MEDS: PANTOPRAZOLE 40MG VIAL IV SCH (09:13)
[2022-03-15] MEDS: GABAPENTIN 400MG CAP PO SCH ×3 (09:13→21:08)
[2022-03-15] MEDS: MAGNESIUM OXIDE 400MG TAB (MAG-OX) PO SCH (09:13)
[2022-03-15] MEDS: ASCORBIC ACID 500 MG TAB PO SCH (09:13)
[2022-03-15 14:00] VITALS: BP 120/60
[2022-03-15] MEDS: cefTRIAXone SOD 1 GM in D5W MINI-BAG PLUS 50 ML IV SCH ×2 (15:09→16:47)
[2022-03-15 19:54] VITALS: BP 114/65
[2022-03-15 19:57] LABS: BACTERIA, URINE SMALL AMOUNT; HYALINE CAST, URINE NONE SEEN /lpf (0-1); RBC, URINE 0-1 /hpf (0-3); RENAL EPITHELIAL CELLS, URINE SMALL AMOUNT /hpf; SQUAMOUS EPITHELIAL CELL URINE SMALL AMOUNT /hpf (SMALL AMT); WBC, URINE 15-20 /hpf (0-3)
[2022-03-15] MEDS: traZODone 50 MG TAB PO SCH (21:07)
[2022-03-15] MEDS: rOPINIRole 1MG TAB PO SCH (21:08)
[2022-03-16 04:38] VITALS: BP 114/67
[2022-03-16 06:08] LABS: HEMATOCRIT 32.7 % (36.0-47.0); HEMOGLOBIN 10.2 g/dl (12.0-15.5); MEAN CORPUSCULAR HEMOGLOBIN 28.2 pg (27.0-33.0); MEAN CORPUSCULAR HGB CONC 31.2 g/dl (32.0-36.5); MEAN CORPUSCULAR VOLUME 90.3 fl (80.0-96.0); PLATELET COUNT, AUTOMATED 360 10^3/uL (150-450); RED BLOOD COUNT 3.62 10^6/uL (4.00-5.40); WHITE BLOOD COUNT 9.3 10^3/uL (4.0-10.0)
[2022-03-16] MEDS: HEPARIN SOD (PORCINE) 5000UNITS/ML 1ML VIAL/SYRINGE SQ SCH ×3 (06:28→20:06)
[2022-03-16 06:48] LABS: ALBUMIN 2.7 GM/DL (3.2-5.2); BILIRUBIN,TOTAL 0.2 MG/DL (0.2-1.0); CALCIUM LEVEL 8.6 MG/DL (8.5-10.1); CREATININE FOR GFR 1.16 MG/DL (0.55-1.30); GLOMERULAR FILTRATION RATE 51.3 (>51); POTASSIUM SERUM 4.3 MEQ/L (3.5-5.1); TOTAL PROTEIN 5.8 GM/DL (6.4-8.2)
[2022-03-16] MEDS: PANTOPRAZOLE 40MG VIAL IV SCH (08:45)
[2022-03-16] MEDS: FUROSEMIDE 40MG/4ML VIAL (J1940) IV SCH ×2 (08:46→15:24)
[2022-03-16] MEDS: ASCORBIC ACID 500 MG TAB PO SCH (08:46)
[2022-03-16] MEDS: DULoxetine 30MG CAPSULE (CYMBALTA) PO SCH ×3 (08:46→20:05)
[2022-03-16] MEDS: MAGNESIUM OXIDE 400MG TAB (MAG-OX) PO SCH (08:46)
[2022-03-16] MEDS: GABAPENTIN 400MG CAP PO SCH ×3 (08:47→20:05)
[2022-03-16] MEDS: FLUTICASONE PROP 0.05% NASAL SPRAY 16 GM (FLONASE) NARES SCH ×2 (09:18→20:06)
[2022-03-16 14:00] VITALS: BP 120/60
[2022-03-16] MEDS: cefTRIAXone SOD 1 GM in D5W MINI-BAG PLUS 50 ML IV SCH (15:25)
[2022-03-16] MEDS: traZODone 50 MG TAB PO SCH (20:05)
[2022-03-16] MEDS: rOPINIRole 1MG TAB PO SCH (20:05)
[2022-03-16 21:30] VITALS: BP 140/62
[2022-03-17] MEDS: PERCOCET 5MG/325MG TAB PO PRN (02:38)
[2022-03-17] MEDS: HEPARIN SOD (PORCINE) 5000UNITS/ML 1ML VIAL/SYRINGE SQ SCH ×2 (05:05→14:09)
[2022-03-17 06:00] VITALS: BP 122/62
[2022-03-17 06:29] LABS: HEMATOCRIT 32.8 % (36.0-47.0); HEMOGLOBIN 10.4 g/dl (12.0-15.5); MEAN CORPUSCULAR HEMOGLOBIN 28.3 pg (27.0-33.0); MEAN CORPUSCULAR HGB CONC 31.7 g/dl (32.0-36.5); MEAN CORPUSCULAR VOLUME 89.1 fl (80.0-96.0); PLATELET COUNT, AUTOMATED 389 10^3/uL (150-450); RED BLOOD COUNT 3.68 10^6/uL (4.00-5.40); WHITE BLOOD COUNT 9.3 10^3/uL (4.0-10.0)
[2022-03-17 07:08] LABS: ALBUMIN 2.9 GM/DL (3.2-5.2); BILIRUBIN,TOTAL 0.2 MG/DL (0.2-1.0); CALCIUM LEVEL 8.9 MG/DL (8.5-10.1); CREATININE FOR GFR 1.02 MG/DL (0.55-1.30); GLOMERULAR FILTRATION RATE 59.5 (>51); POTASSIUM SERUM 4.3 MEQ/L (3.5-5.1); TOTAL PROTEIN 5.8 GM/DL (6.4-8.2)
[2022-03-17] MEDS: GABAPENTIN 400MG CAP PO SCH ×2 (08:42→16:00)
[2022-03-17] MEDS: DULoxetine 30MG CAPSULE (CYMBALTA) PO SCH ×2 (08:42→16:01)
[2022-03-17] MEDS: MAGNESIUM OXIDE 400MG TAB (MAG-OX) PO SCH (08:42)
[2022-03-17] MEDS: PANTOPRAZOLE 40MG VIAL IV SCH (08:43)
[2022-03-17] MEDS: FLUTICASONE PROP 0.05% NASAL SPRAY 16 GM (FLONASE) NARES SCH (08:43)
[2022-03-17] MEDS: ASCORBIC ACID 500 MG TAB PO SCH (08:43)
[2022-03-17] MEDS ORDERED: ACETAMINOPHEN 500 MG TAB PO SCH (09:00)
[2022-03-17] MEDS ORDERED: FUROSEMIDE 40MG/4ML VIAL (J1940) IV SCH (09:00)
[2022-03-17] MEDS ORDERED: PERCOCET 5MG/325MG TAB PO PRN (10:05)
[2022-03-17] MEDS ORDERED: ACET-683 PO (12:51)
[2022-03-17] MEDS ORDERED: FURO40TA2 PO (12:51)
[2022-03-17] MEDS ORDERED: DULO1CAP5 PO (12:51)
[2022-03-17 14:00] VITALS: BP 118/60
[2022-03-17] MEDS ORDERED: FUROSEMIDE 40 MG TAB PO SCH (17:00)
== END 2022-03-17 17:15 ==
LOC: M ED 07:50 → EDBD 07:50 → M ED INP 07:51 → UNDOADMIN 11:00 → M ED INP 11:00 → INTOOBSV 11:00 → ENRESERV 12:24 → M MSPAV 17:29
PROVIDERS: ADMIT Internal Medicine; ATTEND Internal Medicine Nephrology
DX: T50.992A Poisoning by other drugs, medicaments and biological substances, intentional self-harm, initial encounter (principal); T14.91XA Suicide attempt, initial encounter; F32.9 Major depressive disorder, single episode, unspecified; R55 Syncope and collapse; N17.9 Acute kidney failure, unspecified; E87.70 Fluid overload, unspecified; K29.70 Gastritis, unspecified, without bleeding; E66.01 Morbid (severe) obesity due to excess calories; G47.33 Obstructive sleep apnea (adult) (pediatric); Z98.84 Bariatric surgery status; F43.10 Post-traumatic stress disorder, unspecified; F60.3 Borderline personality disorder; R73.03 Prediabetes; E78.5 Hyperlipidemia, unspecified; M54.2 Cervicalgia; E55.9 Vitamin D deficiency, unspecified; R10.13 Epigastric pain; Z79.899 Other long term (current) drug therapy; Z88.2 Allergy status to sulfonamides; Z88.8 Allergy status to other drugs, medicaments and biological substances
CPT/HCPCS: 36415; 71045; 71250; 74177; 76775; 76857; 80047; 80048; 80053; 80061; 80076; 80143; 80307; 81000; 82077; 82375; 82550; 82553; 82803; 83036; 83605; 83690; 83880; 84145; 84443; 84484; 84703; 85025; 85027; 85610; 85730; 87086; 87631; 93005; 93306; 96361; 96365; 96366; 96372; 96375; 96376; 99285; C9113; J0696; J1644; J1940; J2405; Q9967

== ENCOUNTER 2022-03-17 11:58 | Inpatient (IN) | payer OTHER ==
[~2022-03-17] VITALS: Ht 152.4 cm; Wt 120.6 kg
[~2022-03-17 11:58] MED LIST changes: +AMLO1TAB24 PO; +GLUC1TAB58 PO; +MAGN400T2 PO; +META0.52 PO; +TRAZ1TAB14 PO; +VITA-158 PO; +VITA100093 PO
[2022-03-17] MEDS ORDERED: MOM 30ML SUSPENSION UDC PO PRN (12:50)
[2022-03-17] MEDS ORDERED: MAALOX 30 ML SUSP *UDC PO PRN (12:50)
[2022-03-17] MEDS ORDERED: OLANZapine ORAL DISINTEGRATING TAB 5MG PO PRN (12:50)
[2022-03-17] MEDS ORDERED: IBUPROFEN 400MG TAB PO PRN (12:50)
[2022-03-17] MEDS ORDERED: DULO1CAP5 PO (12:51)
[2022-03-17] MEDS ORDERED: ACET-683 PO (12:51)
[2022-03-17] MEDS ORDERED: FURO40TA2 PO (12:51)
[2022-03-17] MEDS ORDERED: HOME MED LIST COMPLETE! XX SCH (14:50)
[2022-03-17 19:09] VITALS: BP 162/72
[2022-03-17] MEDS ORDERED: METAMUCIL (PSYLLIUM) PACKET PO SCH (21:00)
[2022-03-17] MEDS: DULoxetine 30MG CAPSULE (CYMBALTA) PO SCH (21:12)
[2022-03-17] MEDS: rOPINIRole 1MG TAB PO SCH (21:13)
[2022-03-17] MEDS: ACETAMINOPHEN 500 MG TAB PO SCH (21:13)
[2022-03-17] MEDS: GABAPENTIN 400MG CAP PO SCH (21:13)
[2022-03-17] MEDS: traZODone 50 MG TAB PO SCH (21:13)
[2022-03-18 06:47] VITALS: BP 157/72
[2022-03-18] MEDS: ACETAMINOPHEN 500 MG TAB PO SCH (08:29)
[2022-03-18] MEDS: DULoxetine 30MG CAPSULE (CYMBALTA) PO SCH ×3 (08:29→21:01)
[2022-03-18] MEDS: MAGNESIUM OXIDE 400MG TAB (MAG-OX) PO SCH (08:29)
[2022-03-18] MEDS: ATORVASTATIN 20 MG TAB PO SCH (08:29)
[2022-03-18] MEDS: GABAPENTIN 400MG CAP PO SCH ×3 (08:29→21:01)
[2022-03-18] MEDS: ASCORBIC ACID 500 MG TAB PO SCH (08:29)
[2022-03-18] MEDS: VITAMIN D 1,000 INTERNATIONAL UNITS TABLET PO SCH (08:29)
[2022-03-18] MEDS ORDERED: amLODIPine 5 MG TAB PO SCH (09:00)
[2022-03-18] MEDS ORDERED: FUROSEMIDE 40 MG TAB PO SCH (09:00)
[2022-03-18] MEDS ORDERED: METAMUCIL (PSYLLIUM) PACKET PO SCH (09:00)
[2022-03-18] MEDS ORDERED: ACETAMINOPHEN TAB 650MG DOSE (2X325MG) PO PRN (09:40)
[2022-03-18] MEDS: FLUTICASONE PROP 0.05% NASAL SPRAY 16 GM (FLONASE) NARES SCH ×2 (10:52→21:01)
[2022-03-18] MEDS: TORSEMIDE 20 MG TAB PO SCH (16:38)
[2022-03-18 16:47] VITALS: BP 139/65
[2022-03-18] MEDS: amLODIPine 5 MG TAB PO SCH (21:01)
[2022-03-18] MEDS: traZODone 50 MG TAB PO SCH (21:01)
[2022-03-18] MEDS: rOPINIRole 1MG TAB PO SCH (21:01)
[2022-03-19 06:49] VITALS: BP 146/74
[2022-03-19] MEDS: FLUTICASONE PROP 0.05% NASAL SPRAY 16 GM (FLONASE) NARES SCH ×2 (08:20→20:04)
[2022-03-19] MEDS: ATORVASTATIN 20 MG TAB PO SCH (08:21)
[2022-03-19] MEDS: ASCORBIC ACID 500 MG TAB PO SCH (08:21)
[2022-03-19] MEDS: VITAMIN D 1,000 INTERNATIONAL UNITS TABLET PO SCH (08:21)
[2022-03-19] MEDS: TORSEMIDE 20 MG TAB PO SCH ×2 (08:21→15:16)
[2022-03-19] MEDS: MAGNESIUM OXIDE 400MG TAB (MAG-OX) PO SCH (08:22)
[2022-03-19] MEDS: DULoxetine 30MG CAPSULE (CYMBALTA) PO SCH ×3 (08:22→20:04)
[2022-03-19] MEDS: GABAPENTIN 400MG CAP PO SCH ×3 (08:22→20:04)
[2022-03-19] MEDS: METAMUCIL (PSYLLIUM) PACKET PO PRN (11:19)
[2022-03-19 18:26] VITALS: BP 109/65
[2022-03-19 20:00] VITALS: BP 101/52
[2022-03-19] MEDS: traZODone 50 MG TAB PO SCH (20:04)
[2022-03-19] MEDS: rOPINIRole 1MG TAB PO SCH (20:04)
[2022-03-19] MEDS: amLODIPine 5 MG TAB PO SCH (21:00)
[2022-03-20 06:55] VITALS: BP 133/66
[2022-03-20] MEDS: MAGNESIUM OXIDE 400MG TAB (MAG-OX) PO SCH (07:53)
[2022-03-20] MEDS: GABAPENTIN 400MG CAP PO SCH ×3 (07:53→20:11)
[2022-03-20] MEDS: FLUTICASONE PROP 0.05% NASAL SPRAY 16 GM (FLONASE) NARES SCH ×2 (07:54→20:14)
[2022-03-20] MEDS: VITAMIN D 1,000 INTERNATIONAL UNITS TABLET PO SCH (07:54)
[2022-03-20] MEDS: TORSEMIDE 20 MG TAB PO SCH ×2 (07:54→17:01)
[2022-03-20] MEDS: DULoxetine 30MG CAPSULE (CYMBALTA) PO SCH ×3 (07:54→20:11)
[2022-03-20] MEDS: ATORVASTATIN 20 MG TAB PO SCH (07:54)
[2022-03-20] MEDS: ASCORBIC ACID 500 MG TAB PO SCH (07:54)
[2022-03-20 16:10] VITALS: BP 140/70
[2022-03-20] MEDS: METAMUCIL (PSYLLIUM) PACKET PO PRN (20:11)
[2022-03-20] MEDS: rOPINIRole 1MG TAB PO SCH (20:11)
[2022-03-20] MEDS: amLODIPine 5 MG TAB PO SCH (20:13)
[2022-03-20] MEDS: traZODone 50 MG TAB PO SCH (20:14)
[2022-03-21 06:51] VITALS: BP 141/69
[2022-03-21] MEDS: ATORVASTATIN 20 MG TAB PO SCH (07:56)
[2022-03-21] MEDS: ASCORBIC ACID 500 MG TAB PO SCH (07:56)
[2022-03-21] MEDS: GABAPENTIN 400MG CAP PO SCH ×3 (07:56→20:39)
[2022-03-21] MEDS: DULoxetine 30MG CAPSULE (CYMBALTA) PO SCH ×3 (07:56→20:39)
[2022-03-21] MEDS: MAGNESIUM OXIDE 400MG TAB (MAG-OX) PO SCH (07:56)
[2022-03-21] MEDS: VITAMIN D 1,000 INTERNATIONAL UNITS TABLET PO SCH (07:56)
[2022-03-21] MEDS: FLUTICASONE PROP 0.05% NASAL SPRAY 16 GM (FLONASE) NARES SCH ×2 (07:57→20:37)
[2022-03-21] MEDS: TORSEMIDE 20 MG TAB PO SCH ×2 (08:00→16:19)
[2022-03-21 16:43] VITALS: BP 121/65
[2022-03-21] MEDS: rOPINIRole 1MG TAB PO SCH (20:39)
[2022-03-21] MEDS: traZODone 50 MG TAB PO SCH (20:39)
[2022-03-21] MEDS: amLODIPine 5 MG TAB PO SCH (20:40)
[2022-03-22 06:38] VITALS: BP 132/63
[2022-03-22] MEDS: TORSEMIDE 20 MG TAB PO SCH ×2 (07:43→17:27)
[2022-03-22] MEDS: DULoxetine 30MG CAPSULE (CYMBALTA) PO SCH ×3 (07:43→20:27)
[2022-03-22] MEDS: MAGNESIUM OXIDE 400MG TAB (MAG-OX) PO SCH (07:43)
[2022-03-22] MEDS: FLUTICASONE PROP 0.05% NASAL SPRAY 16 GM (FLONASE) NARES SCH ×2 (07:43→20:26)
[2022-03-22] MEDS: ASCORBIC ACID 500 MG TAB PO SCH (07:43)
[2022-03-22] MEDS: ATORVASTATIN 20 MG TAB PO SCH (07:43)
[2022-03-22] MEDS: VITAMIN D 1,000 INTERNATIONAL UNITS TABLET PO SCH (07:43)
[2022-03-22] MEDS: GABAPENTIN 400MG CAP PO SCH ×3 (07:44→20:27)
[2022-03-22 17:00] VITALS: BP 125/67
[2022-03-22] MEDS: traZODone 50 MG TAB PO SCH (20:27)
[2022-03-22] MEDS: rOPINIRole 1MG TAB PO SCH (20:27)
[2022-03-22 20:28] VITALS: BP 134/63
[2022-03-22] MEDS: amLODIPine 5 MG TAB PO SCH (20:28)
[2022-03-23 06:28] VITALS: BP 121/58
[2022-03-23] MEDS ORDERED: CYMB1CAP5 PO (08:00)
[2022-03-23] MEDS ORDERED: GABA-283 PO (08:00)
[2022-03-23] MEDS ORDERED: TORS20TA2 PO (08:00)
[2022-03-23] MEDS ORDERED: ABIL1TAB11 PO (08:00)
[2022-03-23] MEDS ORDERED: TRAZ-252 PO (08:00)
[2022-03-23] MEDS ORDERED: AMLO1TAB24 PO (08:00)
[2022-03-23] MEDS: ASCORBIC ACID 500 MG TAB PO SCH (08:09)
[2022-03-23] MEDS: ATORVASTATIN 20 MG TAB PO SCH (08:09)
[2022-03-23] MEDS: FLUTICASONE PROP 0.05% NASAL SPRAY 16 GM (FLONASE) NARES SCH (08:09)
[2022-03-23] MEDS: GABAPENTIN 400MG CAP PO SCH (08:10)
[2022-03-23] MEDS: TORSEMIDE 20 MG TAB PO SCH (08:10)
[2022-03-23] MEDS: DULoxetine 30MG CAPSULE (CYMBALTA) PO SCH (08:10)
[2022-03-23] MEDS: MAGNESIUM OXIDE 400MG TAB (MAG-OX) PO SCH (08:10)
[2022-03-23] MEDS: VITAMIN D 1,000 INTERNATIONAL UNITS TABLET PO SCH (08:10)
== END 2022-03-23 08:53 | disposition home or self-care (01) | DRG 751 ==
LOC: M PSY 17:18
PROVIDERS: ADMIT Psychiatry & Neurology Psychiatry; ATTEND Psychiatry & Neurology Psychiatry
DX: F33.1 Major depressive disorder, recurrent, moderate (principal); F43.10 Post-traumatic stress disorder, unspecified; F60.3 Borderline personality disorder; Z91.51 Personal history of suicidal behavior; Z62.810 Personal history of physical and sexual abuse in childhood; Z63.0 Problems in relationship with spouse or partner; Z98.84 Bariatric surgery status; Z90.79 Acquired absence of other genital organ(s); Z81.8 Family history of other mental and behavioral disorders; Z79.899 Other long term (current) drug therapy; Z88.2 Allergy status to sulfonamides; Z88.8 Allergy status to other drugs, medicaments and biological substances; Z91.048 Other nonmedicinal substance allergy status; G47.33 Obstructive sleep apnea (adult) (pediatric); R73.03 Prediabetes; E78.5 Hyperlipidemia, unspecified; I10 Essential (primary) hypertension; M54.2 Cervicalgia; E55.9 Vitamin D deficiency, unspecified; G62.9 Polyneuropathy, unspecified

== ENCOUNTER → 2022-04-15 | Outpatient (CLI) | payer MEDICAID ==
[~2022-04-15] MED LIST changes: +ABIL1TAB11 PO; +ACET-683 PO; +CYMB1CAP5 PO; +FURO40TA2 PO; +TORS20TA2 PO; +TRAZ-252 PO
[2022-04-15 10:39] LABS: BASO # 0.1 10^3/uL (0.0-0.2); BASO % 0.5 % (0.0-1.0); EOS # 0.3 10^3/uL (0.0-0.5); EOS % 3.1 % (0.0-3.0); HEMATOCRIT 36.2 % (36.0-47.0); HEMOGLOBIN 11.1 g/dl (12.0-15.5); LYMPH # 2.6 10^3/uL (1.5-5.0); LYMPH % 26.5 % (24.0-44.0); MEAN CORPUSCULAR HEMOGLOBIN 27.8 pg (27.0-33.0); MEAN CORPUSCULAR HGB CONC 30.7 g/dl (32.0-36.5); MEAN CORPUSCULAR VOLUME 90.7 fl (80.0-96.0); MONO # 0.8 10^3/uL (0.0-0.8); MONO % 8.6 % (2.0-8.0); NEUTROPHILS # 5.8 10^3/uL (1.5-8.5); NEUTROPHILS % 60.6 % (36.0-66.0); PLATELET COUNT, AUTOMATED 434 10^3/uL (150-450); RED BLOOD COUNT 3.99 10^6/uL (4.00-5.40); WHITE BLOOD COUNT 9.6 10^3/uL (4.0-10.0)
[2022-04-15 11:09] LABS: ALBUMIN 3.5 GM/DL (3.2-5.2); BILIRUBIN,TOTAL 0.4 MG/DL (0.2-1.0); CALCIUM LEVEL 9.6 MG/DL (8.5-10.1); CREATININE FOR GFR 1.33 MG/DL (0.55-1.30); GLOMERULAR FILTRATION RATE 43.8 (>51); POTASSIUM SERUM 3.8 MEQ/L (3.5-5.1); TOTAL PROTEIN 6.9 GM/DL (6.4-8.2)
[2022-04-15 13:50] LABS: APPEARANCE, URINE MANUAL CLEAR (CLEAR); COLOR, URINE MANUAL LT YELLOW (YELLOW)
[2022-04-15 13:51] LABS: BILIRUBIN, URINE MANUAL NEGATIVE (NEGATIVE); BLOOD URINE MANUAL NEGATIVE (NEGATIVE); GLUCOSE, URINE (UA) MANUAL NEGATIVE (NEGATIVE); KETONE, URINE MANUAL NEGATIVE (NEGATIVE); LEUKOCYTE ESTERASE, URINE MAN TRACE (NEGATIVE); NITRITE, URINE MANUAL NEGATIVE (NEGATIVE); PROTEIN, URINE MANUAL NEGATIVE (NEGATIVE); SPECIFIC GRAVITY,URINE MANUAL 1.015 (1.002-1.035); UROBILINOGEN, URINE MANUAL NORMAL (NORMAL)
[2022-04-15 14:26] LABS: BACTERIA, URINE SMALL AMOUNT; HYALINE CAST, URINE NONE SEEN /lpf (0-1); SQUAMOUS EPITHELIAL CELL URINE SMALL AMOUNT /hpf (SMALL AMT)
== END ==
LOC: M PLALAB 08:19
PROVIDERS: ATTEND Physician Assistant
DX: R60.0 Localized edema (principal)

== ENCOUNTER 2022-04-26 13:38 | Emergency (ER) | payer MEDICAID, OTHER ==
[~2022-04-26] VITALS: Ht 152.4 cm; Wt 123.5 kg
[2022-04-26 14:44] LABS: BASO # 0.1 10^3/uL (0.0-0.2); BASO % 0.6 % (0.0-1.0); EOS # 0.4 10^3/uL (0.0-0.5); EOS % 4.3 % (0.0-3.0); HEMATOCRIT 34.6 % (36.0-47.0); LYMPH # 2.6 10^3/uL (1.5-5.0); LYMPH % 32.3 % (24.0-44.0); MEAN CORPUSCULAR HEMOGLOBIN 28.6 pg (27.0-33.0); MEAN CORPUSCULAR HGB CONC 31.8 g/dl (32.0-36.5); MEAN CORPUSCULAR VOLUME 90.1 fl (80.0-96.0); MONO # 0.8 10^3/uL (0.0-0.8); MONO % 9.3 % (2.0-8.0); NEUTROPHILS # 4.3 10^3/uL (1.5-8.5); PLATELET COUNT, AUTOMATED 420 10^3/uL (150-450); RED BLOOD COUNT 3.84 10^6/uL (4.00-5.40); WHITE BLOOD COUNT 8.2 10^3/uL (4.0-10.0)
[2022-04-26 15:13] LABS: CALCIUM LEVEL 9.2 MG/DL (8.5-10.1); CREATININE FOR GFR 1.12 MG/DL (0.55-1.30); GLOMERULAR FILTRATION RATE 53.4 (>51); POTASSIUM SERUM 4.5 MEQ/L (3.5-5.1)
[2022-04-26 15:15] VITALS: BP 144/79
[2022-04-26 15:16] LABS: ALBUMIN 3.5 GM/DL (3.2-5.2); ALT/SGPT 28 U/L (12-78); BILIRUBIN,DIRECT < 0.1 MG/DL (0.0-0.2); BILIRUBIN,TOTAL 0.2 MG/DL (0.2-1.0); LIPASE 100 U/L (73-393); NT-PRO BNP 246 PG/ML (<125); TOTAL PROTEIN 6.9 GM/DL (6.4-8.2)
[2022-04-26 15:17] LABS: CK-MB VALUE MASS 1.4 NG/ML (<3.6); MB/CK RELATIVE INDEX 1.57 (< OR =4)
[2022-04-26 15:19] LABS: RSV AMPLIFICATION NEGATIVE (NEGATIVE)
[2022-04-26] MEDS ORDERED: ISOVUE-370 76% 100ML VIAL As Ordered ONE (15:31)
[2022-04-26 16:19] LABS: CK-MB VALUE MASS < 1.0 NG/ML (<3.6); CPK CREATINE PHOSPHOKINASE 75 U/L (26-192); MB/CK RELATIVE INDEX 1.33 (< OR =4)
== END 2022-04-26 17:25 | disposition home or self-care (01) ==
LOC: M ED 13:38
DX: F41.9 Anxiety disorder, unspecified (principal); F32.9 Major depressive disorder, single episode, unspecified; I10 Essential (primary) hypertension; R73.03 Prediabetes; Z87.442 Personal history of urinary calculi; Z98.84 Bariatric surgery status; Z79.899 Other long term (current) drug therapy; Z88.2 Allergy status to sulfonamides; Z88.8 Allergy status to other drugs, medicaments and biological substances; Z91.89 Other specified personal risk factors, not elsewhere classified
CPT/HCPCS: 71045; 71275; 74178; 80047; 80048; 80076; 81000; 81015; 82550; 82553; 83690; 83880; 85025; 87086; 87631; 93005; 93041; 94760; 99285; Q9967

== ENCOUNTER → 2022-05-05 | Outpatient (REF) | payer OTHER, MEDICAID | LOC: M SFHCPLAZ 17:36 | PROVIDERS: ATTEND Physician Assistant | DX: R05.1 Acute cough (principal) ==

== ENCOUNTER → 2022-05-14 | Outpatient (CLI) | payer MEDICAID, OTHER | LOC: M CARPUL 07:36 | PROVIDERS: ATTEND Physician Assistant | DX: R60.1 Generalized edema (principal) ==

== ENCOUNTER → 2022-05-21 | Outpatient (CLI) | payer OTHER | LOC: M WHC 09:09 | PROVIDERS: ATTEND Physician Assistant | DX: M71.22 Synovial cyst of popliteal space [Baker], left knee (principal); R60.1 Generalized edema ==

== ENCOUNTER → 2022-05-26 | Outpatient (CLI) | payer OTHER | LOC: M PLAIMG 08:16 | PROVIDERS: ATTEND Physician Assistant | DX: M79.672 Pain in left foot (principal); M25.562 Pain in left knee ==

== ENCOUNTER → 2022-09-18 | Outpatient (CLI) | payer OTHER ==
[2022-09-18 14:18] LABS: BASO # 0.1 10^3/uL (0.0-0.2); BASO % 0.6 % (0.0-1.0); EOS # 0.3 10^3/uL (0.0-0.5); EOS % 3.4 % (0.0-3.0); LYMPH # 3.6 10^3/uL (1.5-5.0); LYMPH % 38.5 % (24.0-44.0); MEAN CORPUSCULAR HEMOGLOBIN 26.4 pg (27.0-33.0); MEAN CORPUSCULAR HGB CONC 30.8 g/dl (32.0-36.5); MEAN CORPUSCULAR VOLUME 85.7 fl (80.0-96.0); MONO # 0.7 10^3/uL (0.0-0.8); MONO % 7.7 % (2.0-8.0); NEUTROPHILS # 4.6 10^3/uL (1.5-8.5); NEUTROPHILS % 49.2 % (36.0-66.0); PLATELET COUNT, AUTOMATED 516 10^3/uL (150-450); RED BLOOD COUNT 4.55 10^6/uL (4.00-5.40); WHITE BLOOD COUNT 9.4 10^3/uL (4.0-10.0)
[2022-09-18 14:34] LABS: ALBUMIN 3.7 G/DL (3.2-5.2); BILIRUBIN,TOTAL 0.3 MG/DL (0.3-1.2); CALCIUM LEVEL 9.3 MG/DL (8.5-10.1); CREATININE FOR GFR 1.22 MG/DL (0.55-1.30); GLOMERULAR FILTRATION RATE 48.4 (>51); POTASSIUM SERUM 4.9 MMOL/L (3.5-5.1)
[2022-09-18 14:36] LABS: THYROID STIMULATING HORMONE 1.704 uIU/ML (0.55-4.78)
[2022-09-18 17:13] LABS: PERCENT SATURATION 8.8 % (13.2-45.0)
== END ==
LOC: M PLALAB 11:32
PROVIDERS: ATTEND Physician Assistant
DX: D75.839 Thrombocytosis, unspecified (principal)

== ENCOUNTER → 2023-03-03 | Outpatient (CLI) | payer OTHER ==
[~2023-03-03] MED LIST changes: -GABA-283 PO; +GABA-284 PO; -ROPI1TAB3 PO; +ROPI1TAB73 PO; -ROSU20TA5 OR; +ROSU20TA61 OR
== END ==
LOC: M WHC 15:36
PROVIDERS: ATTEND Physician Assistant
DX: Z12.31 Encounter for screening mammogram for malignant neoplasm of breast (principal)

== ENCOUNTER → 2023-03-03 | Outpatient (CLI) | payer OTHER ==
[2023-03-03 17:24] LABS: BASO # 0.1 10^3/uL (0.0-0.2); BASO % 0.5 % (0.0-1.0); EOS # 0.1 10^3/uL (0.0-0.5); HEMOGLOBIN 12.3 g/dl (12.0-15.5); LYMPH % 43.5 % (24.0-44.0); MEAN CORPUSCULAR HEMOGLOBIN 28.3 pg (27.0-33.0); MEAN CORPUSCULAR HGB CONC 31.5 g/dl (32.0-36.5); MEAN CORPUSCULAR VOLUME 89.7 fl (80.0-96.0); MONO % 8.7 % (2.0-8.0); NEUTROPHILS # 5.2 10^3/uL (1.5-8.5); NEUTROPHILS % 45.7 % (36.0-66.0); PLATELET COUNT, AUTOMATED 423 10^3/uL (150-450); RED BLOOD COUNT 4.35 10^6/uL (4.00-5.40); WHITE BLOOD COUNT 11.4 10^3/uL (4.0-10.0)
[2023-03-03 17:50] LABS: HEMOGLOBIN A1c 5.6 % (4.0-6.0)
[2023-03-03 17:51] LABS: TOTAL IRON BINDING CAPACITY 333 UG/DL (250-425)
[2023-03-03 17:52] LABS: IRON (FE) 41 UG/DL (50-170); PERCENT SATURATION 12.3 % (13.2-45.0)
[2023-03-03 17:55] LABS: ALBUMIN 4.1 G/DL (3.2-5.2); ALKALINE PHOSPHATASE 58 U/L (46-116); ALT/SGPT 21 U/L (7.0-40); AST/SGOT < 8 U/L (<34); BILIRUBIN,TOTAL 0.3 MG/DL (0.3-1.2); BLOOD UREA NITROGEN 36 MG/DL (9-23); CALCIUM LEVEL 9.3 MG/DL (8.5-10.1); CARBON DIOXIDE LEVEL 30 MMOL/L (20-31); CHLORIDE LEVEL 102 MMOL/L (98-107); CHOLESTEROL LEVEL 224 MG/DL (<200); CREATININE FOR GFR 1.32 MG/DL (0.55-1.30); FERRITIN 31.5 NG/ML (7.3-270.7); GLUCOSE, FASTING 75 MG/DL (60-100); LDL CHOLESTEROL 129.4 MG/DL (<100); POTASSIUM SERUM 4.3 MMOL/L (3.5-5.1); SODIUM LEVEL 139 MMOL/L (136-145); TOTAL PROTEIN 7.2 G/DL (5.7-8.2); TRIGLYCERIDES LEVEL 153 MG/DL (<150); VITAMIN B12 LEVEL 372 PG/ML (211-911)
== END ==
LOC: M PLALAB 16:07
PROVIDERS: ATTEND Physician Assistant
DX: N18.31 Chronic kidney disease, stage 3a (principal); R73.03 Prediabetes; I12.9 Hypertensive chronic kidney disease with stage 1 through stage 4 chronic kidney disease, or unspecified chronic kidney disease; E61.1 Iron deficiency; R60.0 Localized edema; E78.2 Mixed hyperlipidemia

== ENCOUNTER → 2023-10-08 | Outpatient (CLI) | payer OTHER ==
[~2023-10-08] MED LIST changes: +DULO1CAP6 PO; +TRAZ-189 PO
== END ==
LOC: M RAD 07:53
PROVIDERS: ATTEND Physician Assistant
DX: E04.1 Nontoxic single thyroid nodule (principal); R91.8 Other nonspecific abnormal finding of lung field

== ENCOUNTER → 2023-11-09 | Outpatient (CLI) | payer OTHER | LOC: M RAD 12:54 | PROVIDERS: ATTEND Physician Assistant | DX: R09.89 Other specified symptoms and signs involving the circulatory and respiratory systems (principal); I65.23 Occlusion and stenosis of bilateral carotid arteries ==

== ENCOUNTER → 2023-11-15 | Outpatient (CLI) | payer OTHER | LOC: M PLAIMG 14:18 | PROVIDERS: ATTEND Physician Assistant | DX: I35.0 Nonrheumatic aortic (valve) stenosis (principal) ==

== ENCOUNTER → 2024-03-06 | Outpatient (CLI) | payer OTHER | LOC: M WHC 15:46 | PROVIDERS: ATTEND Physician Assistant | DX: Z12.31 Encounter for screening mammogram for malignant neoplasm of breast (principal) ==

== ENCOUNTER 2024-06-26 09:00 | Day surgery (SDC) | payer OTHER ==
[~2024-06-26] VITALS: Ht 152.4 cm; Wt 108.0 kg
[~2024-06-26 09:00] MED LIST changes: +ARIP1TAB4 PO; +DSS100CA PO; +FERR325T19 PO; +LIDOCAINE 2% 100MG/5ML SDV (FOR ANES.) As Ordered ONE; +PANT40TA29 PO; -ROSU20TA61 OR; +ROSU20TA86 OR; +TRAZ-257 PO; +fentaNYL 100 MCG/2 ML INJECTION As Ordered ONE; +propofoL 200 MG/20 ML VIAL As Ordered ONE
[2024-06-26 11:08] VITALS: TEMP 97.4
[2024-06-26 11:25] VITALS: BP 114/64; O2SAT 99
== END 2024-06-26 11:49 | disposition home or self-care (01) ==
LOC: M OPP 09:00
PROVIDERS: ATTEND Internal Medicine Gastroenterology
DX: K63.5 Polyp of colon (principal); Z86.0100 Personal history of colon polyps, unspecified; Z83.719 Family history of colon polyps, unspecified; K57.30 Diverticulosis of large intestine without perforation or abscess without bleeding; K64.8 Other hemorrhoids; R12 Heartburn; Z98.0 Intestinal bypass and anastomosis status; I10 Essential (primary) hypertension; E78.00 Pure hypercholesterolemia, unspecified; E55.9 Vitamin D deficiency, unspecified; K21.9 Gastro-esophageal reflux disease without esophagitis; M19.90 Unspecified osteoarthritis, unspecified site; F41.9 Anxiety disorder, unspecified; F32.A Depression, unspecified; F43.10 Post-traumatic stress disorder, unspecified; G47.30 Sleep apnea, unspecified; Z88.2 Allergy status to sulfonamides; Z88.8 Allergy status to other drugs, medicaments and biological substances; Z91.040 Latex allergy status; Z91.048 Other nonmedicinal substance allergy status; Z79.899 Other long term (current) drug therapy
CPT/HCPCS: 43235; 45380; 45385; 88305; J3010

== ENCOUNTER → 2024-07-17 | Outpatient (CLI) | payer OTHER ==
[~2024-07-17] MED LIST changes: -LIDOCAINE 2% 100MG/5ML SDV (FOR ANES.) As Ordered ONE; -fentaNYL 100 MCG/2 ML INJECTION As Ordered ONE; -propofoL 200 MG/20 ML VIAL As Ordered ONE
[2024-07-17 18:28] LABS: HEMATOCRIT 39.8 % (36.0-47.0); HEMOGLOBIN 12.4 g/dl (12.0-15.5); MEAN CORPUSCULAR HEMOGLOBIN 28.6 pg (27.0-33.0); MEAN CORPUSCULAR HGB CONC 31.2 g/dl (32.0-36.5); MEAN CORPUSCULAR VOLUME 91.9 fl (80.0-96.0); PLATELET COUNT, AUTOMATED 402 10^3/uL (150-450); RED BLOOD COUNT 4.33 10^6/uL (4.00-5.40); WHITE BLOOD COUNT 10.3 10^3/uL (4.0-10.0)
[2024-07-17 18:51] LABS: ALBUMIN 3.8 G/DL (3.2-5.2); BILIRUBIN,TOTAL 0.3 MG/DL (0.3-1.2); CALCIUM LEVEL 9.8 MG/DL (8.5-10.1); CHOLESTEROL RISK RATIO 3.37 (<5); CREATININE FOR GFR 1.36 MG/DL (0.55-1.30); GLOMERULAR FILTRATION RATE 42.4 (>51); HDL CHOLESTEROL 54.3 MG/DL (>40); LDL CHOLESTEROL 102.7 MG/DL (<100); NON-HDL-C 128.7 MG/DL; POTASSIUM SERUM 4.3 MMOL/L (3.5-5.1); THYROID STIMULATING HORMONE 2.083 uIU/ML (0.55-4.78); TOTAL PROTEIN 7.5 G/DL (5.7-8.2)
[2024-07-17 18:52] LABS: TOTAL 25(OH) VITAMIN D 25.6 NG/ML (20.0-100.0)
[2024-07-17 18:53] LABS: FOLATE 20.1 NG/ML (>5.4)
[2024-07-17 18:54] LABS: FREE T4 1.06 NG/DL (0.89-1.76)
[2024-07-17 20:00] LABS: HEMOGLOBIN A1c 5.6 % (4.0-6.0)
== END ==
LOC: M PLALAB 14:18
PROVIDERS: ATTEND Nurse Practitioner Family
DX: R73.03 Prediabetes (principal); E55.9 Vitamin D deficiency, unspecified; E61.1 Iron deficiency; I10 Essential (primary) hypertension; E04.1 Nontoxic single thyroid nodule; R41.3 Other amnesia

== ENCOUNTER → 2024-08-12 | Outpatient (CLI) | payer OTHER | LOC: M RAD 10:32 | PROVIDERS: ATTEND Nurse Practitioner Family | DX: R41.3 Other amnesia (principal) ==

== ENCOUNTER → 2025-03-21 | Outpatient (CLI) | payer OTHER ==
[2025-03-21 16:35] LABS: PLATELET COUNT, AUTOMATED 430 10^3/uL (150-450)
[2025-03-21 17:01] LABS: ALT/SGPT 24.0 U/L (7.0-40); AST/SGOT 17.0 U/L (<34); CALCIUM LEVEL 9.7 MG/DL (8.3-10.6); CARBON DIOXIDE LEVEL 32.0 MMOL/L (20-31); CHLORIDE LEVEL 103.0 MMOL/L (98-107); CREATININE FOR GFR 1.45 MG/DL (0.55-1.30); GLOMERULAR FILTRATION RATE 41.3 (>45); IRON (FE) 70.0 UG/DL (50-170); PERCENT SATURATION 19.7 % (13.2-45.0); POTASSIUM SERUM 4.4 MMOL/L (3.5-5.1); SODIUM LEVEL 142.0 MMOL/L (136-145)
[2025-03-21 17:03] LABS: TOTAL 25(OH) VITAMIN D 28.5 NG/ML (20.0-100.0)
[2025-03-21 17:04] LABS: VITAMIN B12 LEVEL 259.0 PG/ML (211-911)
[2025-03-21 17:06] LABS: ESTIMATED AVERAGE GLUCOSE 120.0 MG/DL (60-110)
== END ==
LOC: M RAD 15:19
PROVIDERS: ATTEND Nurse Practitioner Family
DX: R42 Dizziness and giddiness (principal); R07.89 Other chest pain; R73.03 Prediabetes; R06.02 Shortness of breath

== ENCOUNTER 2025-05-17 13:52 | Observation (INO) | payer OTHER ==
[~2025-05-17] VITALS: Ht 152.4 cm; Wt 114.5 kg
[2025-05-17] MEDS ORDERED: ISOVUE-370 76% 100 ML VIAL As Ordered ONE (16:22)
[2025-05-17 16:26] LABS: INR 0.92
[2025-05-17 16:27] LABS: BASO # 0.1 10^3/uL (0.0-0.2); BASO % 0.6 % (0.0-1.0); EOS # 0.2 10^3/uL (0.0-0.5); EOS % 2.6 % (0.0-3.0); LYMPH # 3.9 10^3/uL (1.5-5.0); LYMPH % 41.3 % (24.0-44.0); MONO # 0.8 10^3/uL (0.0-0.8); MONO % 8.7 % (2.0-8.0); NEUTROPHILS # 4.3 10^3/uL (1.5-8.5); NEUTROPHILS % 46.2 % (36.0-66.0); PLATELET COUNT, AUTOMATED 414 10^3/uL (150-450)
[2025-05-17 16:33] LABS: ALT/SGPT 23.0 U/L (7.0-40); AST/SGOT 16.0 U/L (<34); MAGNESIUM LEVEL 2.5 MG/DL (1.8-2.4)
[2025-05-17 16:36] LABS: FREE T4 1.23 NG/DL (0.89-1.76)
[2025-05-17] MEDS: ACETAMINOPHEN 325 MG TAB PO ONE (18:02)
[2025-05-17] MEDS ORDERED: SENN1TAB96 PO (18:34)
[2025-05-17] MEDS ORDERED: CITR500T PO (18:34)
[2025-05-17] MEDS ORDERED: HOME MED LIST COMPLETE! XX SCH (18:35)
[2025-05-17] MEDS ORDERED: MIRALAX *UNIT DOSE* 17 GM PACKET PO PRN (19:55)
[2025-05-17 20:50] VITALS: BP 198/84; TEMP 98.6; O2SAT 93
[2025-05-17 22:50] VITALS: BP 125/61; TEMP 97.1; O2SAT 94
[2025-05-17] MEDS: traZODone 100 MG TAB PO SCH (23:45)
[2025-05-17] MEDS: GABAPENTIN 400 MG CAP PO SCH (23:46)
[2025-05-17] MEDS: SENNOSIDES/DOCUSATE SODIUM 8.6 MG/50MG TAB PO SCH (23:46)
[2025-05-18 00:42] VITALS: BP 119/58; TEMP 97.6; O2SAT 93
[2025-05-18 03:51] VITALS: BP 117/56; TEMP 97.8; O2SAT 91
[2025-05-18 05:24] LABS: PLATELET COUNT, AUTOMATED 355 10^3/uL (150-450)
[2025-05-18 05:41] LABS: CALCIUM LEVEL 9.1 MG/DL (8.3-10.6); CARBON DIOXIDE LEVEL 29.0 MMOL/L (20-31); CHLORIDE LEVEL 102.0 MMOL/L (98-107); CREATININE FOR GFR 1.16 MG/DL (0.55-1.30); GLOMERULAR FILTRATION RATE 54.0 (>45); POTASSIUM SERUM 4.2 MMOL/L (3.5-5.1); SODIUM LEVEL 140.0 MMOL/L (136-145)
[2025-05-18] MEDS: ACETAMINOPHEN 325 MG TAB PO PRN (06:37)
[2025-05-18 07:43] VITALS: BP 126/67; TEMP 97.9; O2SAT 98
[2025-05-18 10:49] VITALS: BP 131/62
[2025-05-18] MEDS: ENOXAPARIN 40 MG/0.4 ML SYRINGE (J1650 PER 10MG) SC SCH (10:50)
[2025-05-18] MEDS: ATORVASTATIN 20 MG TAB PO SCH (10:51)
[2025-05-18 10:52] VITALS: BP 131/62
[2025-05-18] MEDS: TORSEMIDE 20 MG TAB PO SCH (10:52)
[2025-05-18] MEDS: ASCORBIC ACID 500 MG TAB PO SCH (10:53)
[2025-05-18] MEDS: MAGNESIUM OXIDE 400 MG TAB PO SCH (11:21)
[2025-05-18] MEDS ORDERED: ECOT81TA5 PO (11:27)
[2025-05-18] MEDS: NS 500 ML IV ONE (11:49)
[2025-05-18] MEDS: KETOROLAC 30 MG/ML 1 ML VIAL IV ONE (11:49)
[2025-05-18 12:00] VITALS: BP 125/63; TEMP 97.8; O2SAT 98
[2025-05-18] MEDS: FLUZONE VACCINE TRI PF(25-26) 0.5ML SYRINGE IM.IMMUN ONE (13:42)
[2025-05-18] MEDS: PNEUMOC 21-VAL CONJ-DIP CRM/PF 0.5 ML SYRINGE IM.IMMUN ONE (13:43)
[2025-05-19] MEDS ORDERED: FERROUS SULFATE 325 MG TAB PO SCH (09:00)
== END 2025-05-18 14:25 | disposition home or self-care (01) ==
LOC: M ED 13:52 → M ED INP 13:53 → M PCU 21:53
PROVIDERS: ADMIT Student in an Organized Health Care Education/Training Program; ATTEND Student in an Organized Health Care Education/Training Program
DX: G45.9 Transient cerebral ischemic attack, unspecified (principal); E66.9 Obesity, unspecified; Z68.42 Body mass index [BMI] 45.0-49.9, adult; R73.03 Prediabetes; I10 Essential (primary) hypertension; E78.5 Hyperlipidemia, unspecified; I67.2 Cerebral atherosclerosis; R20.0 Anesthesia of skin; R25.8 Other abnormal involuntary movements; F41.9 Anxiety disorder, unspecified; F32.A Depression, unspecified; F60.3 Borderline personality disorder; Z82.3 Family history of stroke; Z88.2 Allergy status to sulfonamides; Z88.8 Allergy status to other drugs, medicaments and biological substances; Z91.040 Latex allergy status; Z91.048 Other nonmedicinal substance allergy status; Z79.899 Other long term (current) drug therapy
CPT/HCPCS: 36415; 70450; 70496; 70498; 70551; 71045; 80047; 80048; 80076; 83735; 84439; 84443; 85025; 85027; 85610; 85730; 90471; 90472; 90656; 90684; 93005; 93041; 93306; 94760; 96372; 96374; 96375; 97161; 99285; J1650; J1885; J2765; Q9967

== ENCOUNTER → 2025-05-26 | Outpatient (CLI) | payer OTHER ==
[~2025-05-26] MED LIST changes: +CITR500T PO; +ECOT81TA5 PO; +SENN1TAB96 PO
== END ==
LOC: M EKG 08:10
PROVIDERS: ATTEND Internal Medicine Cardiovascular Disease
DX: R55 Syncope and collapse (principal); Z53.9 Procedure and treatment not carried out, unspecified reason

== ENCOUNTER → 2025-07-12 | Outpatient (CLI) | payer OTHER ==
[~2025-07-12] MED LIST changes: +DOCU-215 PO; -DSS100CA PO
== END ==
LOC: M WHC 12:21
PROVIDERS: ATTEND Student in an Organized Health Care Education/Training Program
DX: Z12.31 Encounter for screening mammogram for malignant neoplasm of breast (principal); Z13.820 Encounter for screening for osteoporosis; M85.89 Other specified disorders of bone density and structure, multiple sites; R92.323 Mammographic fibroglandular density, bilateral breasts